=== PATIENT | female | born 1975 | race Caucasian/White ===

== ENCOUNTER → 2017-09-29 11:13 | Outpatient (CLI) | payer OTHER, SELFPAY ==
[2017-10-01 11:39] LABS: HPV Reflexed? NOT INDICATED
== END ==
PROVIDERS: Visit Provider Obstetrics & Gynecology
DX: Z12.4 Encounter for screening for malignant neoplasm of cervix (principal)
CPT/HCPCS: 88175; G0145

== ENCOUNTER → 2017-12-27 08:18 | Outpatient (CLI) | payer OTHER, SELFPAY ==
--- NOTE | 2017-12-27 08:21 | BI_ITS ---
MAMMOGRAPHY - BILATERAL SCREENING REASON FOR EXAM: Female, 42 years old. Routine annual screening examination. PERTINENT HISTORY: Non-contributory. TECHNIQUE: Digital bilateral breast samuel (3D mammographic acquisition) in the CC and MLO projections. 2-D mediolateral oblique (MLO) and craniocaudad (CC) views of both breasts were obtained. CAD: Full Field Digital Mammography with Computer Added Detection was performed. COMPARISON: Comparison is made with prior study dated December 02, 2016 and October 21, 2015. FINDINGS: Breast Composition: The breasts are heterogeneously dense, which may obscure small masses. There are no dominant masses or suspicious calcifications. No other significant abnormalities are identified. There has been no significant change since the prior study. BI/SCREENING MAMM (CAD), BILAT IMPRESSION: Stable bilateral screening mammogram. Yearly follow-up mammogram recommended. (A) ASSESSMENT CATEGORY: BIRADS Category 1: Negative. A letter regarding these results will be sent to the patient by the facility within 30 days. Approximately 10% of breast cancers are not detected by mammography. A normal mammogram should not delay biopsy of a clinically suspicious abnormality. [id number] Electronically Signed: Tyler Quigley MD at 9:11 EDT Tel [phone], Service support ,
== END ==
PROVIDERS: Visit Provider Obstetrics & Gynecology
DX: Z12.31 Encounter for screening mammogram for malignant neoplasm of breast (principal)
CPT/HCPCS: 77063; 77067

== ENCOUNTER → 2019-01-02 | Outpatient (CLI) | payer OTHER, SELFPAY ==
--- NOTE | 2019-01-02 08:02 | BI_ITS ---
MAMMOGRAPHY - BILATERAL SCREENING REASON FOR EXAM: Female, 43 years old. Routine annual screening examination. PERTINENT HISTORY: Non-contributory. TECHNIQUE: Digital bilateral breast radames (3D mammographic acquisition) in the CC and MLO projections. 2-D mediolateral oblique (MLO) and craniocaudad (CC) views of both breasts were obtained. CAD: Full Field Digital Mammography with Computer Added Detection was performed. COMPARISON: Comparison is made with prior study dated December 27, 2017 and December 02, 2016. FINDINGS: Breast Composition: The breasts are heterogeneously dense, which may obscure small masses. There is a 4 mm well-defined nodule in the deep slightly medial aspect of the left breast. Adjacent to this, there is a similar appearing benign nodule measuring 4 mm. Correlation with ultrasound is recommended. No other significant abnormalities are identified. BI/SCREEN MAMM (CAD) W/RADAMES BILAT IMPRESSION: There are 2 subcentimeter well-defined nodules in the deep slightly medial aspect of the left breast as described. Correlation with ultrasound is recommended. ASSESSMENT CATEGORY: BIRADS Category 0: Incomplete. Need additional imaging evaluation. A letter regarding these results will be sent to the patient by the facility within 30 days. Approximately 10% of breast cancers are not detected by mammography. A normal mammogram should not delay biopsy of a clinically suspicious abnormality. [id number] Electronically Signed: Tyler Quigley, at 9:27 EDT , Service support ,
== END | disposition home or self-care (01) ==
LOC: OPBI 07:59
PROVIDERS: Referring Provider Obstetrics & Gynecology; Visit Provider Obstetrics & Gynecology
DX: Z12.31 Encounter for screening mammogram for malignant neoplasm of breast (principal)
CPT/HCPCS: 77063; 77067

== ENCOUNTER → 2019-01-04 | Outpatient (CLI) | payer SELFPAY ==
--- NOTE | 2019-01-04 15:29 | US_ITS ---
STUDY: ULTRASOUND BREAST - LEFT REASON FOR EXAM: Female, 43 years old. Abnormal screening mammogram. TECHNIQUE: Axial and longitudinal images of the LEFT breast were performed with a high resolution ultrasound transducer. COMPARISON: Comparison is made with prior mammogram dated January 02, 2019. FINDINGS: LEFT Breast: 3 subcentimeters cysts are seen at the 12 and 11:00 position the breast at 2 to 4 cm from nipple. This corresponds to the mammographic abnormality. US/Breast Limited Unilateral IMPRESSION: The mammographic abnormality corresponds to a cluster of 3 subcentimeters cysts. Routine mammographic follow-up is recommended. ASSESSMENT CATEGORY: BIRADS Category 2: Benign. A letter regarding these results will be sent to the patient by the facility within 30 days. Electronically Signed: Tyler Quigley, at 7:58 EDT , Service support ,
== END | disposition home or self-care (01) ==
LOC: OPUS 15:28
PROVIDERS: Referring Provider Obstetrics & Gynecology; Visit Provider Obstetrics & Gynecology
DX: N60.02 Solitary cyst of left breast (principal)
CPT/HCPCS: 76642

== ENCOUNTER → 2019-12-07 13:32 | Outpatient (CLI) | payer OTHER, SELFPAY ==
[2019-12-12 04:55] LABS: HPV Reflexed? NOT INDICATED
== END ==
PROVIDERS: Visit Provider Obstetrics & Gynecology
DX: Z12.4 Encounter for screening for malignant neoplasm of cervix (principal)
CPT/HCPCS: 88175; G0145

== ENCOUNTER → 2020-01-08 10:59 | Outpatient (CLI) | payer OTHER, SELFPAY ==
--- NOTE | 2020-01-08 11:00 | BI_ITS ---
MAMMOGRAPHY - BILATERAL SCREENING 3-D TOMOSYNTHESIS REASON FOR EXAM: Female, 44 years old. Routine screening PERTINENT HISTORY: NO FM HX , CURRENT BCP USE SINCE AGE 16, LT MOLE MARKED, RT U/S 12-09-16=LYMPH NODE. TECHNIQUE: 2-D mammograms and 3-D Tomosynthesis of the breast (s) were performed. CAD was performed. COMPARISON: 01/02/2019 FINDINGS: The breast composition is heterogeneously dense that can obscure small breast masses. Scattered benign calcifications are seen. No dense spiculated masses or suspicious microcalcifications are identified. No architectural distortion is identified. There is no skin thickening or retraction. There has been no significant change since the prior study. BI/SCREEN MAMM (CAD) W/RADAMES BILAT IMPRESSION: No mammographic signs of malignancy. Routine yearly mammograms recommended. ASSESSMENT CATEGORY: BIRADS Category 2: Benign. A letter regarding these results will be sent to the patient by the facility within 30 days. FOLLOW UP RECOMMENDATION: Yearly follow up mammogram recommended. (A) Approximately 10% of breast cancers are not detected by mammography. A normal mammogram should not delay biopsy of a clinically suspicious abnormality. Electronically Signed: Eleuterio Camejo MD at 11:51 EDT , Service support ,
== END ==
PROVIDERS: Referring Provider Obstetrics & Gynecology; Visit Provider Obstetrics & Gynecology
DX: Z12.31 Encounter for screening mammogram for malignant neoplasm of breast (principal)
CPT/HCPCS: 77063; 77067

== ENCOUNTER → 2021-03-06 07:49 | Outpatient (CLI) | payer OTHER, SELFPAY ==
--- NOTE | 2021-03-06 07:50 | BI_ITS ---
MAMMOGRAPHY - BILATERAL SCREENING REASON FOR EXAM: Female, 45 years old. Routine annual screening examination. PERTINENT HISTORY: Non-contributory. TECHNIQUE: Digital bilateral breast radames (3D mammographic acquisition) in the CC and MLO projections. 2-D mediolateral oblique (MLO) and craniocaudad (CC) views of both breasts were obtained. CAD: Full Field Digital Mammography with Computer Added Detection was performed. COMPARISON: Comparison is made with prior study dated 01/08/2020 and 01/02/2019. FINDINGS: Breast Composition: The breasts are heterogeneously dense, which may obscure small masses. There are no dominant masses or suspicious calcifications. No other significant abnormalities are identified. There has been no significant change since the prior study. BI/SCRN MAMM (CAD)W/RADAMES BILAT IMPRESSION: Stable bilateral screening mammogram. Yearly follow-up mammogram recommended. (A) ASSESSMENT CATEGORY: BIRADS Category 1: Negative. A letter regarding these results will be sent to the patient by the facility within 30 days. Approximately 10% of breast cancers are not detected by mammography. A normal mammogram should not delay biopsy of a clinically suspicious abnormality. [id number] Electronically Signed: Tyler Quigley MD at 9:01 EDT , Service support ,
== END ==
PROVIDERS: Referring Provider Obstetrics & Gynecology; Visit Provider Obstetrics & Gynecology
DX: Z12.31 Encounter for screening mammogram for malignant neoplasm of breast (principal)
CPT/HCPCS: 77063; 77067

== ENCOUNTER → 2022-03-12 | Outpatient (CLI) | payer OTHER, SELFPAY ==
--- NOTE | 2022-03-12 10:48 | BI_ITS ---
MAMMOGRAPHY - BILATERAL SCREENING 3-D TOMOSYNTHESIS REASON FOR EXAM: Female, 46 years old. SCREENING PERTINENT HISTORY: No significant family history. TECHNIQUE: 2-D mammograms and 3-D Tomosynthesis of the breast (s) were performed. CAD was performed. COMPARISON: 03/06/2021 FINDINGS: The breast composition is Extermely dense tissue. Scattered benign calcifications are seen. No dense spiculated masses or suspicious microcalcifications are identified. No architectural distortion is identified. There is no skin thickening or retraction. There has been no significant change since the prior study. BI/SCRN MAMM (CAD)W/RADAMES BILAT IMPRESSION: No mammographic signs of malignancy. Routine yearly mammograms recommended. ASSESSMENT CATEGORY: BIRADS Category 1: Negative. A letter regarding these results will be sent to the patient by the facility within 30 days. FOLLOW UP RECOMMENDATION: Yearly follow up mammogram recommended. (A) Approximately 10% of breast cancers are not detected by mammography. A normal mammogram should not delay biopsy of a clinically suspicious abnormality. Electronically Signed: Parker Matos MD at 14:48 EDT ,
== END | disposition home or self-care (01) ==
LOC: OPBI 10:45
DX: Z01.419 Encounter for gynecological examination (general) (routine) without abnormal findings (principal); Z12.31 Encounter for screening mammogram for malignant neoplasm of breast
CPT/HCPCS: 77063; 77067

== ENCOUNTER → 2023-04-01 | Outpatient (CLI) | payer OTHER, SELFPAY ==
--- NOTE | 2023-04-01 09:30 | BI_ITS ---
MAMMOGRAPHY - BILATERAL SCREENING REASON FOR EXAM: Female, 47 years old. Routine annual screening examination. PERTINENT HISTORY: Non-contributory. TECHNIQUE: Digital bilateral breast radames (3D mammographic acquisition) in the CC and MLO projections. 2-D mediolateral oblique (MLO) and craniocaudad (CC) views of both breasts were obtained. CAD: Full Field Digital Mammography with Computer Added Detection was performed. COMPARISON: Comparison is made with prior examination dated March 12, 2022. FINDINGS: Breast Composition: The breasts are heterogeneously dense, which may obscure small masses. There are no dominant masses or suspicious calcifications. Stable small benign-appearing bilateral axillary lymph nodes. No other significant abnormalities are identified. There has been no significant change since the prior study. BI/SCRN MAMM (CAD)W/RADAMES BILAT IMPRESSION: Stable bilateral screening mammogram. Yearly follow-up mammogram recommended. (A) ASSESSMENT CATEGORY: BIRADS Category 2: Benign. A letter regarding these results will be sent to the patient by the facility within 30 days. Approximately 10% of breast cancers are not detected by mammography. A normal mammogram should not delay biopsy of a clinically suspicious abnormality. [id number] Electronically Signed: Tyler Quigley MD at 13:29 EDT ,
== END | disposition home or self-care (01) ==
PROVIDERS: Referring Provider Nurse Practitioner Women's Health; Visit Provider Nurse Practitioner Women's Health
DX: Z01.419 Encounter for gynecological examination (general) (routine) without abnormal findings (principal); Z12.31 Encounter for screening mammogram for malignant neoplasm of breast
CPT/HCPCS: 77063; 77067

== ENCOUNTER → 2023-04-18 | Outpatient (CLI) | payer OTHER, SELFPAY | END | disposition home or self-care (01) | LOC: LABSPEC 14:42 | PROVIDERS: Visit Provider Nurse Practitioner Family | DX: R35.0 Frequency of micturition (principal) | CPT/HCPCS: 87086; 87088 ==

== ENCOUNTER → 2023-04-20 | Outpatient (CLI) | payer OTHER, SELFPAY ==
[2023-04-20 10:41] LABS: Bacteria 0 SEEN /hpf (None Seen); Mucous, Urine 0 SEEN /hpf (<or=2+); Red Blood Cells-Urine 0 SEEN /hpf (0-5)
[2023-04-20 13:16] LABS: Color, Urine Yellow (Yellow); Glucose, Dipstick Normal (Normal); Ketone-Dipstick 5 mg/dl (Negative); Leukocyte Esterase-Dipstick 25 /ul (Negative); Nitrite-Dipstick Positive (Negative); Occult Blood-Urine 150 /ul (Negative); Protein-Dipstick 15 mg/dl (Negative); Specific Gravity, Urine 1.025 (1.002-1.030); Urine Bilirubin Dipstick 3 mg/dL (Negative); Urine Clarity Sl. Cloudy (Clear); Urine Urobilinogen 4 mg/dl (Normal)
[2023-04-20 13:21] LABS: Squamous Epithelial Cells - UA 0-5 SEEN /hpf (5-10); White Blood Cells 0-5 SEEN /hpf (0-5)
== END | disposition home or self-care (01) ==
LOC: LABSPEC 10:39
PROVIDERS: Visit Provider Physician Assistant
DX: R35.0 Frequency of micturition (principal)
CPT/HCPCS: 81001; 87086

== ENCOUNTER 2023-04-22 18:11 | Emergency (ER) | payer OTHER, SELFPAY ==
[2023-04-22 18:12] VITALS: BP 131/87; PULSE 91; RESP 14; TEMP 36.6; O2SAT 100; BMI 25.7
--- NOTE | 2023-04-22 19:00 | ED.VIS.FEGU ---
HPI HPI - Female History of Present Illness Chief Complaint: Complaint Narrative Narrative: 37-year-old presenting with urinary frequency. She had this last week and was concerned for UTI so she went to the urgent care where they told her initially she did not have a UTI but then was told that her culture was positive. She was started on Macrobid and then told that her culture was negative. She states that she went back to have a repeat urinalysis and initially it looked negative and the culture was negative but she was placed on Cipro. She was called and told that her culture was negative so she stopped Cipro. She still complaining of frequency. She does not have dysuria. She does state that she has some mild suprapubic pain which is present before she urinates but after she voids it goes away. She also has some left flank pain. History of kidney stones. [facility] Medical History Dysuria Urinary tract infection with hematuria Home Medications norethindrone-e.estradiol triphasic 0.5 mg/0.75 mg/1 mg-35 mcg tablet (Nylia (28)) tab PO 04/18/23 [History Last Taken Unknown] phenazopyridine 100 mg tablet (Pyridium) 100 mg PO TID PRN pain #7 tabs 04/18/23 [Rx Last Taken Unknown] ciprofloxacin HCl 500 mg tablet 500 mg PO BID #10 tabs 04/20/23 [Rx Last Taken Unknown] Allergy/AdvReac Type Severity Reaction Status Date / Time amoxicillin Allergy Intermediate Hives Verified 04/20/23 10:21 ciprofloxacin AdvReac Intermediate Tingling Verified 04/20/23 17:34 Social History adopted: No household members: spouse and children current occupational status: employed 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 pets and animals: Yes (1) pets and animals: dog(s) history of recent travel: No sexually active: Yes Smoking Status: Never smoker alcohol intake: current alcohol intake frequency: a few times a week Alcohol type: wine substance use type: does not use caffeine: Yes (1) Type: coffee frequency: daily seatbelt use: always do you feel safe at home: Yes ROS ROS ED Constitutional Constitutional ED: Denies chills, fever(s) or sweats Eyes Eyes: Denies blurry vision or change in vision ENT ENT ED: Denies ear pain or sore throat Cardiovascular Cardiovascular: Denies chest pain, palpitations or racing heartbeat Respiratory/Chest Respiratory/Chest: Denies cough, dyspnea or sputum Gastrointestinal Gastrointestinal: Reports abdominal pain; Denies constipation, diarrhea, nausea or vomiting Genitourinary Genitourinary ED: Reports urinary frequency; Denies dysuria or hematuria Musculoskeletal Musculoskeletal: Denies arthralgias, myalgias or neck pain Integumentary Denies abscess, Abrasions or rash Neurologic Neurologic: Denies headache(s), paresthesias or weakness Psychiatric Psychiatric: Denies anxiety, depression, suicidal ideation or suicidal thoughts Endocrine Endocrinology: Denies polydipsia or polyuria EXAM Physical Exam Const Vital Signs: 04/22/23 18:12 04/22/23 20:45 04/22/23 20:51 Temperature 98 F Temperature Source Temporal Pulse Rate 91 83 Respiratory Rate 14 18 18 Blood Pressure 131/87 H 129/89 H Blood Pressure Mean 101 102 Pulse Ox 100 98 98 Oxygen Delivery Method Room Air Room Air Positive well nourished General Appearance ED: NAD; Negative for pallor HEENT Reports TM's clear and moist mucous membranes Tympanic Membrane ED: Yes TM's clear Eyes PERRL and EOMs intact bilaterally Chest Wall inspection of chest normal Resp normal respiratory effort Cardio regular rate and regular rhythm GI normal to inspection, nondistended, normoactive bowel sounds, non-tender and non-distended Back/Spine no CVA tenderness Neuro oriented x3 Sensorium / Orientation: alert Motor Exam: strength 5/5 throughout Psych mental status grossly normal Skin no rashes or lesions noted General Skin Exam: Negative for jaundice or pallor MDM MDM MDM Narrative Medical decision making narrative: Patient presenting with continued urinary frequency. Differential includes UTI, pyelonephritis, kidney stone, ureteral stone, interstitial cystitis. CBC will be obtained to assess white blood cell count, normal, platelets. BMP to assess renal function, electrolytes. Patient declines analgesia and antiemetics. We will obtain a CT abdomen pelvis without contrast to rule out kidney stone. CBC and BMP were unremarkable. Urinalysis shows some occult blood but no evidence of infection. This was sent for culture. CT of the abdomen pelvis without contrast was obtained and shows no acute process. Discussed findings with patient and given that she is having ongoing urinary frequency I will have her follow-up with urology. She is amenable to this. She discharged stable condition. Impression: 1. Urinary frequency 2. Left flank pain Lab Data Labs: Laboratory Results - last 24 hr 04/22/23 04/22/23 19:05 19:10 WBC 8.1 RBC 5.06 Hgb 15.3 H Hct 47.9 H MCV 94.7 MCH 30.2 MCHC 31.9 L RDW Std Deviation 41.0 RDW Coeff of Wilder 11.9 Plt Count 312 MPV 10.6 Immature Gran % (Auto) 0.200 Neut % (Auto) 67.8 Lymph % (Auto) 24.6 Bledsoe % (Auto) 6.2 Eos % (Auto) 0.7 Baso % (Auto) 0.5 Absolute Neuts (auto) 5.5 Absolute Lymphs (auto) 2.00 Nucleated RBC % 0 Sodium 140 Potassium 3.7 Chloride 104 Carbon Dioxide 32.0 Anion Gap 4 L BUN 13 Creatinine 0.94 Estim Creat Clear Calc 62.52 Est GFR (MDRD) Af Amer 81 Est GFR (MDRD) Non-Af 67 BUN/Creatinine Ratio 13.9 Glucose 140 H Calcium 8.9 Urine Color Yellow Urine Clarity Clear Urine pH 5.0 Ur Specific Cody 1.015 Urine Protein Negative Urine Glucose (UA) Normal Urine Ketones Negative Urine Occult Blood 150 H Urine Nitrite Negative Urine Bilirubin Negative Urine Urobilinogen Normal Ur Leukocyte Esterase 100 H Urine RBC 0-5 SEEN Urine WBC 5-10 SEEN Ur Squamous Epith Cells 0-5 SEEN Urine Bacteria RARE Urine Mucus 0 SEEN Radiography Diagnostic Testing: Clinical Impression(s) from Imaging Studies Abdomen/Pelvis CT 04/22/23 19:25 IMPRESSION: Normal unenhanced CT of the abdomen and pelvis. No stones or hydronephrosis. Electronically Signed: Ibrahima Tello MD at 20:12 EDT , Discharge Plan Triage Chief Complaint: Complaint ED Provider: Jarad Torres Dx/Rx/DC Orders Clinical Impression: Urinary frequency Instructions: Overactive Bladder Syndrome (OAB) Prescriptions: No Action Nylia (28) 0.5/0.75/1 mg- 35 mcg tablet PO Patient Comments: TAKE 1 TABLET BY MOUTHTONCE DAILY phenazopyridine [Pyridium] 100 mg tablet 100 mg PO TID PRN (Reason: pain) Qty: 7 0RF ciprofloxacin HCl 500 mg tablet 500 mg PO BID Qty: 10 0RF Primary Care Provider: Care Physician,No Primary Referrals: Supriya Jaffe MD [Med Staff - Active Staff] - 3-5 Days Care Physician,No Primary [Primary Care Provider] - Disposition Disposition: Home, Self Care Discharge Date/Time: 04/22/23 20:59
[2023-04-22 19:15] LABS: Absolute Neutrophil Count 5.5 X10^3/uL (2.0-7.7); Basophil# 0.04 X10^3/uL; Basophil% 0.5 % (0-1); Eosinophil# 0.06 X10^3/uL; Eosinophils% 0.7 % (0-5); Hematocrit 47.9 % (37-47); Hemoglobin 15.3 g/dL (12.0-15.0); Lymphocyte % 24.6 % (19-41); Mean Corp Hgb Conc 31.9 g/dL (32-36); Mean Corpuscular Hgb 30.2 pg (27.0-32.0); Mean Corpuscular Volume 94.7 fL (81-99); Mean Platelet Vol. 10.6 fl (6.2-12.0); Monocyte% 6.2 % (0-10); NRBC Flagged by Analyzer 0 % (0-5); Neutrophil % 67.8 % (47-70); Platelet Count 312 K/mm3 (150-450); RBC Distribution Width CV 11.9 % (11.6-14.6); Red Blood Count 5.06 M/mm3 (4.2-5.4); White Blood Count 8.1 K/mm3 (4.4-11.0)
[2023-04-22 19:16] LABS: Mucous, Urine 0 SEEN /hpf (<or=2+)
[2023-04-22 19:24] LABS: Color, Urine Yellow (Yellow); Glucose, Dipstick Normal (Normal); Ketone-Dipstick Negative (Negative); Leukocyte Esterase-Dipstick 100 /ul (Negative); Nitrite-Dipstick Negative (Negative); Occult Blood-Urine 150 /ul (Negative); Protein-Dipstick Negative (Negative); Specific Gravity, Urine 1.015 (1.002-1.030); Urine Bilirubin Dipstick Negative (Negative); Urine Clarity Clear (Clear); Urine Urobilinogen Normal (Normal)
--- NOTE | 2023-04-22 19:25 | CT_ITS ---
STUDY: CT ABDOMEN AND PELVIS WITHOUT CONTRAST REASON FOR EXAM: Female, 47 years old. Kidney Stone RADIATION DOSAGE (If Supplied By Facility): CTDIvol = ( 8.06 ) mGy, DLP = ( 402.49 ) mGycm TECHNIQUE: Transaxial images were obtained from the dome of the diaphragm to the symphysis pubis without oral contrast, and without intravenous contrast. Sagittal and coronal images were reconstructed. Individualized dose optimization techniques were used for this CT. COMPARISON: None. FINDINGS: The visualized lung bases are unremarkable. The visualized portions of the heart are within normal limits. Normal liver. Normal gallbladder and extrahepatic biliary system. Normal spleen. Normal pancreas. Normal bilateral adrenal glands. Normal right kidney. Normal left kidney. Normal visualized stomach. Normal small intestine. Normal colon. There is moderate stool. The appendix is visualized and appears normal. Normal abdominal aorta. Normal inferior vena cava. Normal retroperitoneum. Normal urinary bladder. Normal visualized uterus. There is no free fluid in the abdomen or pelvis. Normal abdominal wall. Normal osseous structures. CT/Abdomen/Pelvis without Cont IMPRESSION: Normal unenhanced CT of the abdomen and pelvis. No stones or hydronephrosis. Electronically Signed: Ibrahima Tello MD at 20:12 EDT ,
[2023-04-22 19:33] LABS: Bacteria RARE /hpf (None Seen); Red Blood Cells-Urine 0-5 SEEN /hpf (0-5); Squamous Epithelial Cells - UA 0-5 SEEN /hpf (5-10); White Blood Cells 5-10 SEEN /hpf (0-5)
[2023-04-22 19:36] LABS: Anion Gap 4 (5-15); BUN 13 mg/dL (7-18); BUN/Creat Ratio 13.9 RATIO (10-20); Calcium,Total 8.9 mg/dL (8.5-10.1); Chloride 104 mmol/L (98-107); Creatinine, Serum 0.94 mg/dL (0.55-1.02); EST Glomerular Filtration Rate 67 mL/min (>60); Est Glom Filt Rate - Afr Amer 81 mL/min (>60); Estimated Creatinine Clearance 62.52 ml/min; Glucose 140 mg/dL (74-106); Potassium 3.7 mmol/L (3.5-5.1); Sodium Level 140 mmol/L (136-145)
[2023-04-22 20:45] VITALS: BP 129/89; PULSE 83; RESP 18; O2SAT 98
[2023-04-22 20:51] VITALS: RESP 18; O2SAT 98
== END 2023-04-22 20:59 | disposition home or self-care (01) ==
PROVIDERS: Emergency Provider Student in an Organized Health Care Education/Training Program; Visit Provider Student in an Organized Health Care Education/Training Program
DX: R10.9 Unspecified abdominal pain (principal); R35.0 Frequency of micturition
CPT/HCPCS: 74176; 80048; 81001; 85025; 87077; 87086; 87088; 87186; 99283; A4216

== ENCOUNTER 2023-05-21 09:18 | Outpatient (CLI) | payer OTHER, SELFPAY ==
[2023-05-21 09:21] LABS: Bacteria 0 SEEN /hpf (None Seen); Mucous, Urine 0 SEEN /hpf (<or=2+); Red Blood Cells-Urine 0 SEEN /hpf (0-5); Squamous Epithelial Cells - UA 0 SEEN /hpf (5-10); White Blood Cells 0 SEEN /hpf (0-5)
[2023-05-21 10:15] LABS: Absolute Lymphocyte Count 1.71 X10^3/uL (0.83-4.51); Absolute Neutrophil Count 5.8 X10^3/uL (2.0-7.7); Basophil# 0.04 X10^3/uL; Basophil% 0.5 % (0-1); Eosinophil# 0.04 X10^3/uL; Eosinophils% 0.5 % (0-5); Hematocrit 49.9 % (37-47); Hemoglobin 15.5 g/dL (12.0-15.0); Lymphocyte # 1.71 X10^3/ul (0.83-4.51); Lymphocyte % 21.6 % (19-41); Mean Corp Hgb Conc 31.1 g/dL (32-36); Mean Corpuscular Hgb 29.7 pg (27.0-32.0); Mean Corpuscular Volume 95.6 fL (81-99); Mean Platelet Vol. 10.9 fl (6.2-12.0); Monocyte# 0.32 X10^3/uL; NRBC Flagged by Analyzer 0 % (0-5); Neutrophil % 73.1 % (47-70); Platelet Count 285 K/mm3 (150-450); RBC Distribution Width CV 11.9 % (11.6-14.6); RBC Distribution Width SD 42.2 fl (35.1-43.9); Red Blood Count 5.22 M/mm3 (4.2-5.4); White Blood Count 7.9 K/mm3 (4.4-11.0)
[2023-05-21 10:44] LABS: Hemoglobin A1c 5.3 % (3.8-5.6)
[2023-05-21 11:04] LABS: T4 Free Direct 0.91 ng/dL (0.76-1.46)
[2023-05-21 12:13] LABS: Color, Urine Yellow (Yellow); Glucose, Dipstick Normal (Normal); Ketone-Dipstick 5 mg/dl (Negative); Leukocyte Esterase-Dipstick 100 /ul (Negative); Nitrite-Dipstick Negative (Negative); Occult Blood-Urine 150 /ul (Negative); Protein-Dipstick Negative (Negative); Specific Gravity, Urine 1.015 (1.002-1.030); Urine Bilirubin Dipstick Negative (Negative); Urine Clarity Clear (Clear); Urine Urobilinogen Normal (Normal)
[2023-05-31 05:06] LABS: Anti-Thyroglobulin AB 333.6 IU/mL (0.0-0.9); Thyroglobulin RIA 5.8 ng/mL (.); Thyroid Peroxidase AB 220 IU/mL (0-34); Thyroid Stim Immunoglob <0.10 IU/L (0.00-0.55)
== END 2023-05-21 23:59 | disposition home or self-care (01) ==
LOC: MFPLAB 09:19
PROVIDERS: PCP Family Medicine; Visit Provider Family Medicine
DX: R63.1 Polydipsia (principal); E01.0 Iodine-deficiency related diffuse (endemic) goiter
CPT/HCPCS: 36415; 81001; 83036; 84432; 84439; 84443; 84445; 85025; 86376; 86800

== ENCOUNTER → 2023-06-01 | Outpatient (CLI) | payer OTHER, SELFPAY ==
--- NOTE | 2023-06-01 13:07 | US_ITS ---
EXAM: US SOFT TISSUES HEAD AND NECK, THYROID CLINICAL INDICATION: THYROMEGALY TECHNIQUE: Martinez scale and color doppler imaging was performed of the thyroid gland. COMPARISON: No relevant prior studies available. FINDINGS: LEFT THYROID LOBE: Left thyroid lobe measures 4.8 x 1.8 x 1.8 cm with diffusely heterogeneous echotexture. Dominant 1.8 cm nodule noted appearing solid and cystic in nature, wider than tall, lobulated in contour and without microcalcification. TI-RADS points: 4. TI-RADS category: TR4. This nodule is moderately suspicious. Recommend FNA evaluation. Additional 8 mm left thyroid nodule appears probably solid in nature, isoechoic, wider than tall, well-defined and without microcalcification. TI-RADS points: 3. TI-RADS category: TR3. This nodule is mildly suspicious but no FNA or follow-up is necessary given the small size of this nodule. RIGHT THYROID LOBE: Right thyroid lobe measures 5.1 x 2.0 x 1.9 cm. No abnormal heterogeneous echotexture noted. 5 mm dominant thyroid nodule is wider than tall, well defined, isoechoic and without microcalcification. TI-RADS points: 3. TI-RADS category: TR3. This nodule is mildly suspicious but no FNA or follow-up is necessary given the small size of this nodule. ISTHMUS: Isthmus measures 1 mm in AP dimension. No thyroid nodules are present. US/Thyroid IMPRESSION: Multinodular thyroid gland. RECOMMENDATIONS: FNA of the dominant left thyroid nodule. Electronically Signed: Edy De Los Santos MD at 8:54 EST ,
== END | disposition home or self-care (01) ==
PROVIDERS: PCP Family Medicine; Referring Provider Family Medicine; Visit Provider Family Medicine
DX: E01.0 Iodine-deficiency related diffuse (endemic) goiter (principal)
CPT/HCPCS: 76536

== ENCOUNTER 2023-06-17 12:22 | Outpatient (RCR) | payer OTHER, SELFPAY ==
--- NOTE | 2023-06-17 15:25 | HP.PTEVAL ---
Patient's Visit Information Visit Information Visit Information: SALOMON TEJEDA is a 47 year old F referred to Physical Therapy by JOE ANTONY with a diagnosis of URINARY URGENCY, FREQUENCY AND PELVIC PAIN. Date of Evaluation: 06/17/23 Physical Therapist: Celeste Lancaster, PT, Cert MDT Visit Plan Frequency: 1x/Week Duration: 2-4 Months Plan: PF THERAPY FOR STRENGTHENING, LENGTHENING/RELAXATION AND ENDURANCE TRAINING. URINARY URGE AND FREQUENCY EDUCATION. HEALTHY BLADDER HABIT EDUCATION. TRAINING IN COORDINATION OF PELVIC FLOOR MUSCULATURE WITH HIP AND CORE (TRANSVERSE ABDOMINUS) MUSCULATURE. CORE STRENGTHENING. AME LE ROM, STRETCHING AND STRENGTHENING. TRAINING IN ABDOMINAL CAVITY PRESSURE MGMT WITH ADL'S. Subjective Subjective: Work/Leisure: [employer] WORK FOR [employer] - WORKING ABOUT 30 HRS A WK. Disability: NO Present symptoms: URINARY URGENCY AND FREQUENCY. PATIENT REPORTS SHE HAD SOME ABDOMINAL PAIN EARLY ON BUT THAT HAS GONE AWAY. Present since: SINCE APR 16 2023. Pain Scale: N/A Is it getting better, worse or staying the same: THE LAST 5 NIGHTS IT HAS BEEN BETTER - ABLE TO GO 2.5 HRS BEFORE NEEDING TO URINATE VS 1.25 PRIOR Commenced as a result of: UTI Symptoms at onset: INCREASED FREQUENCY OF URINATION AT NIGHT - EVERY TWO HOURS Worse: DRINKING A LOT OF WATER ALL AT ONCE Better: PATIENT DOESN'T KNOW Disturbed sleep: YES - DUE TO FREQUENT URINATION Previous history/Previous treatment: NO SIGNIFICANT PRIOR HISTORY. Treatment this episode: DX'D WITH UTI BY DR. CARL APR 26 2023 AND TREATED WITH ANTIBIOTIC. LAST CULTURE 06/08/23 WAS NEGATIVE. GEMTESA - PRESCRIBED BY DR. CARL 05/11/23 AND Amitriptyline - DR. WALTERS PRESCRIBED May. FUNCTIONAL MEDICINE CONSULT 06/03/23 WITH REFERRAL TO PT. - RECOMMENDED SUPPLEMENTS THAT PATIENT IS TAKING AND DIET CHANGES. Coughing/sneezing/straining: INTERMITTENTLY POSITIVE FOR UI Gait: NORMAL How long can you delay the need to urinate: LONG NEEDED - HAS NOT EVER LEAKED BECAUSE COULD NOT GET THERE IN TIME BUT USUALLY HAS ACCESS WITHIN 10 TO 15 MINUTES. Prolapse (Falling out feeling): NO Frequency of Urination: ABOUT EVERY 2 HOURS Ability to stop urine flow: YES Ability to initiate urine stream: YES Dyspareunia: SOMETIMES SLIGHT PAIN Bowel Incontinence: NO Accidents: NO Unexplained weight loss: NO Imaging: CYSTOSCOPY BY DR. CARL THAT WAS NORMAL PER PATIENT REPORT. PMH/Recent major surgery: THYROID BIOPSY PENDING. H/O L LB/HIP PAIN - CHRONIC. H/O LOW BACK PAIN - OLD WORK INJURY. H/O CHRONIC NECK PAIN AND STIFFNESS. HISTORY OF CHIROPRACTIC TREATMENTS FOR NECK AND BACK PROBLEMS. Objective Objective: Sitting/Standing Posture: FH. RSH'S. NORMAL LORDOSIS. NO RELEVANT LATERAL SHIFT. Active Correction of posture: NE Other Observations: INDEP GAIT AND TRANSFERS WITH NO GROSS DEVIATIONS NOTED. Sensory deficit: AME LE LIGHT TOUCH SENSATION GROSSLY INTACT AND SYMMETRICAL ROM deficit: MODERATE AME LE HS, HIP ER, HIP ADDUCTOR AND CALF TIGHTNESS Motor deficit: AME HIPS 4/5, KNEES 5/5, ANKLES 5/5. PELVIC FLOOR STRENGTH WITH MANUAL INTERNAL VAGINAL TESTING GRADED 3/5 X 5 SEC X 4 REPS. Reflexes: 2/3 AME LE'S. Dural Signs: NEGATIVE AME LE SX'S. Lumbar mvmt loss: flex - NIL ext - MIN R SG - NIL L SG - MIN PATIENT C/O MILD TO MOD L LOW BACK PAIN WITH L SIDE BEND TESTING. PATIENT DENIES AME LE PAIN, NUMBNESS OR TINGLING. Core strength: POOR Palpation: NO ACUTE LUMBAR TENDERNESS. NO ACUTE PELVIC FLOOR TENDERNESS OR TRIGGER POINTS WITH MANUAL VAGINAL INTERNAL TESTING. FUNCTIONAL SCREEN: Incontinence Impact Questionnaire Score: 9 Urogenital Distress Inventory Score: 4 OTHER: PATIENT TOLERATED ALL TESTING WELL. Goals Goal 1:: NORMALIZE VOIDING FREQUENCEY TO EVERY 3-4 HOURS. Goal Time Frame: 6-8 Weeks Goal 2:: PATIENT WILL DEMONSTRATE/COMMUNICATE 10 CONSISTENT AND CONSECUTIVE 10 SECOND PELVIC FLOOR MUSCLE CONTRACTIONS TO DEMONSTRATE IMPROVED PELVIC FLOOR ENDURANCE. Goal Time Frame: 8-12 Weeks Goal 3:: IMPROVE CORE AND LE STRENGTH BY AT LEAST 1/2 MUSCLE GRADE Goal Time Frame: 8-12 Weeks Goal 4:: IMPROVE AME LE FLEXIBILITY FROM MODERATE TO MILD Goal Time Frame: 8-12 Weeks Goal 5:: DEVELOP HEALTHY FLUID INTAKE HABITS WITH FLUID INTAKE OF ? BODY WEIGHT IN OUNCES PER DAY AND 2/3 BEING WATER. Goal Time Frame: 2-4 Weeks Goal 6:: PATIENT WILL BE INDEP WITH A HEP/HOME INSTRUCTIONS FOR CONTINUED IMPROVEMENT ONCE FORMAL PHYSICAL THERAPY CONCLUDES. Goal Time Frame: 8-12 Weeks Rehabilitation Potential Physical Therapy Diagnosis: URINARY URGENCY AND FREQUENCY - CONTRIBUTING FACTORS INCLUDE DECREASED CORE/POSTURAL STABILITY CONTROL, HIP STIFFNESS AND PELVIC FLOOR WEAKNESS. Rehabilitation Potential: Good Anticipated Interventions Patient/Client Instruction: Educate patient on: Condition, Plan of Care and Risk Factors For the Purpose of:: To improve self management Therapeutic Exercise to Include: Strength training, Endurance training, Coordination, Body mechanics, Flexibilty training, Neuromotor development and Relaxation training For the Purpose of:: To increase ROM, To improve muscle performance and motor function and To improve ability of physical actions for home/community/work/leisure Text: Thank you for the opportunity to evaluate your patient. For Medicare and Medicare HMO plans, please review the plan of care and approve it. It will need to be FAXED BACK to us at [phone] for Medicare purposes. For Medicare only, by signing this I certify the plan of care. Please let me know if there are questions or concerns regarding this plan of care. Physician Signature: Date:
--- NOTE | 2023-07-01 14:19 | HP.PTDCNRP_ITS ---
Patient Information Patient Information: SALOMON TEJEDA was seen in my office for initial evaluation on 06/17/23. The following Plan of Care was established for this patient: POC Established Initial Frequency: 1x/Week Initial Duration: 2-4 Months Anticipated Interventions Patient/Client Instruction: Educate patient on: Condition, Plan of Care and Risk Factors For the Purpose of:: To improve self management Therapeutic Exercise to Include: Strength training, Endurance training, Coordination, Body mechanics, Flexibilty training, Neuromotor development and Relaxation training For the Purpose of:: To increase ROM, To improve muscle performance and motor function and To improve ability of physical actions for home/comm unity/work/leisure Last Seen Last Seen: This patient was last seen in our office . Pertinent comments regarding their Physical therapy will appear below: I received a note stating patient cancelled all appointments due to high insurance deductible/co-pay after initial evaluation. At this point I will be discontinuing this patient from physical therapy. I would be happy to see this patient again in the future if found appropriate by the physician. Thank you! Celeste Lancaster, PT, Cert MDT
== END 2023-06-17 19:00 | disposition home or self-care (01) ==
LOC: PT 12:22
PROVIDERS: PCP Family Medicine
DX: R39.15 Urgency of urination (principal)
CPT/HCPCS: 97162

== ENCOUNTER → 2023-10-07 | Outpatient (CLI) | payer OTHER, SELFPAY ==
[2023-10-07 10:20] LABS: Absolute Lymphocyte Count 1.84 X10^3/uL (0.83-4.51); Absolute Neutrophil Count 3.5 X10^3/uL (2.0-7.7); Basophil# 0.03 X10^3/uL; Basophil% 0.5 % (0-1); Eosinophil# 0.06 X10^3/uL; Hematocrit 47.8 % (37-47); Hemoglobin 15.1 g/dL (12.0-15.0); Lymphocyte # 1.84 X10^3/ul (0.83-4.51); Lymphocyte % 31.8 % (19-41); Mean Corp Hgb Conc 31.6 g/dL (32-36); Mean Corpuscular Hgb 30.1 pg (27.0-32.0); Mean Corpuscular Volume 95.2 fL (81-99); Mean Platelet Vol. 11.6 fl (6.2-12.0); Monocyte# 0.34 X10^3/uL; Monocyte% 5.9 % (0-10); NRBC Flagged by Analyzer 0 % (0-5); Neutrophil % 60.6 % (47-70); Platelet Count 258 K/mm3 (150-450); RBC Distribution Width CV 11.9 % (11.6-14.6); RBC Distribution Width SD 41.7 fl (35.1-43.9); Red Blood Count 5.02 M/mm3 (4.2-5.4); White Blood Count 5.8 K/mm3 (4.4-11.0)
[2023-10-07 11:09] LABS: ALB/GLOB Ratio 1.1 RATIO (0.9-2.4); AST(SGOT) 14 U/L (15-37); Alanine Aminotransfer ALT/SGPT 20 U/L (13-56); Albumin, Serum 3.7 g/dL (3.2-5.0); Alkaline Phosphatase 54 U/L (45-117); Anion Gap 3 (5-15); BUN 13 mg/dL (7-18); BUN/Creat Ratio 15.4 RATIO (10-20); Calcium,Total 8.8 mg/dL (8.5-10.1); Chloride 108 mmol/L (98-107); Creatinine, Serum 0.84 mg/dL (0.55-1.02); EST Glomerular Filtration Rate 76 mL/min (>60); Est Glom Filt Rate - Afr Amer 92 mL/min (>60); Globulin 3.5 g/dL (2.2-4.2); Glucose 87 mg/dL (74-106); Potassium 4.1 mmol/L (3.5-5.1); Protein, Total 7.2 g/dL (6.4-8.2); Sodium Level 138 mmol/L (136-145)
[2023-10-08 11:54] LABS: Cholesterol 198 mg/dL (200); High Density Lipoprotein 44 mg/dL; T4 Free Direct 0.91 ng/dL (0.76-1.46); Thyroid Stim Hormone (TSH) 1.95 uIU/mL (0.358-3.74); Triglycerides 101 mg/dL; Very Low Density Lipoprotein 20 mg/dL (5-40)
== END | disposition home or self-care (01) ==
LOC: MFPLAB 09:13
PROVIDERS: PCP Family Medicine; Visit Provider Family Medicine
DX: E06.3 Autoimmune thyroiditis (principal)
CPT/HCPCS: 36415; 80053; 80061; 84439; 84443; 85025

== ENCOUNTER → 2024-03-01 | Outpatient (CLI) | payer OTHER, SELFPAY ==
[2024-03-01 14:47] LABS: Estradiol < 11.0 pg/mL
[2024-03-03 11:10] LABS: PROGESTERONE <0.1 ng/mL (.)
== END | disposition home or self-care (01) ==
LOC: LABSPEC 14:00
PROVIDERS: PCP Family Medicine; Referring Provider Nurse Practitioner Family; Visit Provider Nurse Practitioner Family
DX: N95.9 Unspecified menopausal and perimenopausal disorder (principal)
CPT/HCPCS: 82670; 84144; 84403

== ENCOUNTER → 2024-04-04 | Outpatient (CLI) | payer OTHER, SELFPAY ==
--- NOTE | 2024-04-04 14:41 | BI_ITS ---
MAMMOGRAPHY - BILATERAL SCREENING 3-D TOMOSYNTHESIS REASON FOR EXAM: Female, 48 years old. SCREENING PERTINENT HISTORY: No significant family history. TECHNIQUE: 2-D mammograms and 3-D Tomosynthesis of the breast (s) were performed. CAD was performed. COMPARISON: 04/01/2023 FINDINGS: The breast composition is Extermely dense tissue. Scattered benign calcifications are seen. No dense spiculated masses or suspicious microcalcifications are identified. No architectural distortion is identified. There is no skin thickening or retraction. There has been no significant change since the prior study. BI/SCRN MAMM (CAD)W/RADAMES BILAT IMPRESSION: No mammographic signs of malignancy. Routine yearly mammograms recommended. ASSESSMENT CATEGORY: BIRADS Category 1: Negative. A letter regarding these results will be sent to the patient by the facility within 30 days. FOLLOW UP RECOMMENDATION: Yearly follow up mammogram recommended. (A) Approximately 10% of breast cancers are not detected by mammography. A normal mammogram should not delay biopsy of a clinically suspicious abnormality. Electronically Signed: Parker Matos MD at 8:31 EDT ,
== END | disposition home or self-care (01) ==
LOC: OPBI 14:40
PROVIDERS: PCP Family Medicine; Referring Provider Nurse Practitioner Women's Health; Visit Provider Nurse Practitioner Women's Health
DX: Z12.31 Encounter for screening mammogram for malignant neoplasm of breast (principal)
CPT/HCPCS: 77063; 77067

== ENCOUNTER → 2024-06-05 | Outpatient (CLI) | payer OTHER, SELFPAY ==
--- NOTE | 2024-06-05 16:26 | US_ITS ---
STUDY: THYROID ULTRASOUND REASON FOR EXAM: Female, 48 years old. History of thyroid nodules. TECHNIQUE: Ultrasound evaluation of the thyroid was performed with real-time and static addison-scale imaging. COMPARISON: Comparison is made with prior study dated June 01, 2023. FINDINGS: RIGHT LOBE: The right lobe of the thyroid gland is enlarged and measures 5.3 cm x 1.2 cm x 2.1 cm. There is a heterogeneous echotexture. There is a 7 mm x 6 mm x 3 mm hypoechoic solid nodule with a increased vascularity in the anterior aspect of the right lobe. This is unchanged. LEFT LOBE: The left lobe of the thyroid gland is enlarged and measures 5.2 cm x 1.6 x 1.8 cm. There is a heterogeneous echotexture. There is a 1.4 cm x 1 cm x 0.6 on the complex solid and cystic nodule in the superior pole. This has decreased slightly in size. There is also evidence of a solid hypoechoic nodule in the superior pole measuring 7 mm x 5 mm x 5 mm. A similar-appearing hypoechoic solid nodule in the inferior pole measuring 8 mm x 8 mm x 7 mm is seen. This is unchanged. ISTHMUS: The isthmus measures 1.8 mm. The regional lymph nodes are normal. US/Thyroid IMPRESSION: Heterogeneous appearance of both lobes of thyroid gland with stable nodular densities as described. Electronically Signed: Tyler Quigley MD at 12:47 EST ,
== END | disposition home or self-care (01) ==
PROVIDERS: PCP Nurse Practitioner Family; Referring Provider Nurse Practitioner Family; Visit Provider Nurse Practitioner Family
DX: E04.1 Nontoxic single thyroid nodule (principal)
CPT/HCPCS: 76536

== ENCOUNTER → 2024-10-09 | Outpatient (CLI) | payer OTHER, SELFPAY ==
[2024-10-09 09:53] VITALS: BP 120/74; PULSE 100; RESP 16; TEMP 36.4; O2SAT 100; BMI 24.3
== END | disposition home or self-care (01) ==
LOC: RAD 09:37
PROVIDERS: PCP Nurse Practitioner Family; Referring Provider Nurse Practitioner Family; Visit Provider Nurse Practitioner Family
DX: N39.0 Urinary tract infection, site not specified (principal); B96.89 Other specified bacterial agents as the cause of diseases classified elsewhere

== ENCOUNTER → 2025-02-06 | Outpatient (CLI) | payer OTHER, SELFPAY ==
[2025-02-08 08:09] LABS: PROGESTERONE 2.2 ng/mL (.)
== END | disposition home or self-care (01) ==
LOC: LAB 12:11
PROVIDERS: PCP Nurse Practitioner Family; Referring Provider Nurse Practitioner Family; Visit Provider Nurse Practitioner Family
DX: E28.9 Ovarian dysfunction, unspecified (principal)
CPT/HCPCS: 36415; 82670; 84144; 84402; 84403

== ENCOUNTER → 2025-03-08 | Outpatient (CLI) | payer OTHER, SELFPAY | END | disposition home or self-care (01) | PROVIDERS: PCP Nurse Practitioner Family; Referring Provider Nurse Practitioner Family; Visit Provider Nurse Practitioner Family | DX: E04.1 Nontoxic single thyroid nodule (principal) | CPT/HCPCS: 36415; 86376 ==

== ENCOUNTER → 2025-05-09 | Outpatient (CLI) | payer OTHER, SELFPAY ==
--- NOTE | 2025-05-09 15:59 | BI_ITS ---
EXAM: SCRN MAMM (CAD)W/RADAMES BILAT DATE: 05/09/2025 CLINICAL HISTORY: F, Age 49 y/o , SCREENING No family history. TECHNIQUE: Procedure Code: [id number] Modality: MG Procedure: SCRN MAMM (CAD)W/RADAMES BILAT COMPARISON: Prior exam(s) dated April 05, 2024.. FINDINGS: TISSUE DENSITY: The breasts are extremely dense, which lowers the sensitivity of mammography. Bilateral Breast Mammographic Findings: No significant masses, calcifications or other abnormalities are identified. No suspicious masses, areas of developing architectural distortion, or suspicious calcifications. There has been no significant interval change. BI/SCRN MAMM (CAD)W/RADAMES BILAT IMPRESSION: Stable bilateral screening mammogram. OVERALL FINAL ASSESSMENT BI-RADS 1: NEGATIVE. RECOMMENDATION: Routine annual follow-up in 1 Year Additional Recommendation none A letter with findings and recommendations will be mailed to the patient. Reading Location: [facility]
== END | disposition home or self-care (01) ==
LOC: OPBI 15:58
PROVIDERS: PCP Nurse Practitioner Family; Referring Provider Nurse Practitioner Women's Health; Visit Provider Nurse Practitioner Women's Health
DX: Z12.31 Encounter for screening mammogram for malignant neoplasm of breast (principal)
CPT/HCPCS: 77063; 77067

== ENCOUNTER → 2025-05-11 | Outpatient (CLI) | payer OTHER, SELFPAY ==
--- OUTSIDE RECORDS SUMMARY | 2025-05-11 09:15 | XMS RPT_ITS | CCD ---
Author Organization [facility] ENGINEERING WRITER [facility] Care Team Providers Care Clothing Cutter Name Role Phone PRIYA ROSS Attending Unavail able Care Physician, No Primary Primary Care Provider Unavailable Care Physician, No Primary Referring Provider Un available Roof ADVERTISING SALES REPRESENTATIVE, ADVERTISING SALES REPRESENTATIVE-C Avril Welch Attending Provider SULAIMAN Lees Attending Provider Care Physician, No Primary Primary Care Provider Unavailable Care Physician, No Primary Referring Provider Un available Roof ADVERTISING SALES REPRESENTATIVE, ADVERTISING SALES REPRESENTATIVE-C Avril Welch Attending Provider SULAIMAN Lees Attending Provider RAVEN TAMEZ Attending Unavailable AVRIL SANTOS Primary Care Unavailable RAVEN TAMEZ Attending Unavailable AVRIL SANTOS Primary Care Unavailable RAVEN TAMEZ Attending Unavailable AVRIL SANTOS Primary Care Unavailable Orpérez PYROMETER MECHANIC-Alex FRANKLIN Primary Care Provider ALEX HENRIQUEZ Referring Unavailable ALEX HENRIQUEZ Primary Care Unavailable Pieter ADVERTISING SALES REPRESENTATIVE-C, Randee Charles Primary Care Provider Un available Alannah PORTILLO, Dr. Epps Attending Provider Pieter ADVERTISING SALES REPRESENTATIVE-C, Randee Charles Attending Provider Unava ilable Pieter ADVERTISING SALES REPRESENTATIVE-C, Randee Charles Referring Provider Unava ilable Pieter ADVERTISING SALES REPRESENTATIVE-C, Randee Charles Primary Care Physician Dr. Supriya Pickering MD Attending Physician Pieter ADVERTISING SALES REPRESENTATIVE-C, Randee Charles Attending Physician Unav ailable Pieter ADVERTISING SALES REPRESENTATIVE, Randee Charles Attending Unavailabl e Pieter ADVERTISING SALES REPRESENTATIVE, Randee Charles Referring Unavailabl e Pieter ADVERTISING SALES REPRESENTATIVE, Randee Charles Primary Care UnavailPriya Junior Attending Unavailable Priya Blandon Referring Unavailable Pieter ADVERTISING SALES REPRESENTATIVE, Randee Charles Primary Care Unavailabl e Pieter ADVERTISING SALES REPRESENTATIVE, Randee Charles Attending Unavailabl e Pieter ADVERTISING SALES REPRESENTATIVE, Randee Charles Referring Unavailabl e Pieter ADVERTISING SALES REPRESENTATIVE, Randee Charles Primary Care Unavailabl e Pieter ADVERTISING SALES REPRESENTATIVE, Randee Charles Attending Unavailabl e Pieter ADVERTISING SALES REPRESENTATIVE, Randee Charles Referring Unavailabl e Pieter ADVERTISING SALES REPRESENTATIVE, Randee K Primary Care Unavailabl e Pieter ADVERTISING SALES REPRESENTATIVE, Randee Charles Attending Unavailabl e Pieter ADVERTISING SALES REPRESENTATIVE, Randee Charles Referring Unavailabl e Pieter ADVERTISING SALES REPRESENTATIVE, Randee Charles Primary Care Unavailabl e Allergies Allergy Classification Reported Allergen(s) Allergy Type Date of Onset Reaction(s) Facility (10 sources) Amoxicillin; Translations: [amoxicillin] Drug Allergy 12-28-19 12 [facility] (9 sources) Ciprofloxacin; Translations: [CIPROFLOXACIN] Drug Allergy 04-20-20 23 [place] [facility] Comment on above: Reported tingling in hands (1 source) Penicillins; Translations: [PENICILLINS] Propensity to adverse reactions to drug (disorder) 12-18-19 13 [facility] Repository (1 source) Seasonal allergy; Translations: [SEASONAL ALLERGIES] Propensity to adverse reactions (disorder) 12-28-19 12 [facility] Repository (1 source) ALLERGIES NOT ON FILE; Translations: [ALLERGIES NOT ON FILE] Propensity to adverse reactions (disorder) [email or web address] 2 Repository (2 sources) Sulfamethoxazole Drug Allergy 10-10-19 25 [facility] (2 sources) Trimethoprim Drug Allergy 10-10-19 25 [facility] (1 source) Amoxicillin Drug Allergy 10-10-19 25 [facility] Repository (1 source) Ciprofloxacin Drug Allergy 10-10-19 25 [facility] Repository (1 source) Sulfamethoxazole Drug Allergy 10-10-19 25 [facility] Repository (1 source) Trimethoprim Drug Allergy 10-10-19 25 [facility] Repository Medications Current Medications Medication Drug Class(es) Dates Sig (Normalized) Sig (Original) 84 hr estradiol 0.72762 mg/hr transdermal system (2 sources) Estrogen Start: 10-09-2024 Nortrel 0.5/35 (1 source) Start: 02-25-2022 Nortrel 0.5/35 Oral, qDay, 0 Refill(s) Start Date: 02/25/22 Status: Ordered Vibegron (2 sources) Start: 10-09-2024 take 1 tablet by mouth once daily Start: 10-09-2024 take 1 tablet by jose th once daily Vibegron (Gemtesa) 75 mg tablet Active 75 mg PO DAILY October 09, 2024 12:00am Completed/Discontinued Medications Medication Drug Class(es) Dates Sig (Normalized) Sig (Original) ciprofloxacin 500 mg oral tablet (8 sources) Quinolone Antimicrobial Start: 04-20-2023 End: 10-09-2024 take 1 tablet by mouth twice daily Ciprofloxacin Hcl 500 mg tablet Discontinued 500 mg PO TWICE A DAY 10 April 20, 2023 12:00am October 09, 2024 9:52am Norethin-E.Estradio l Triphasic (9 sources) Estrogen Start: 04-18-2023 End: 10-09-2024 Norethin-E.Estradi ol Triphasic (Nylia ()) 0.5/0.75/1 mg- 35 mcg tablet Discontinued {tbl} PO April 18, 2023 12:00am October 09, 2024 9:51am Start: 04-18-2023 Norethin-E.Est radiol Triphasic (Nylia ()) 0.5/0.75/1 mg- 35 mcg tablet Active TABLET PO April 17, 2023 11:00pm Start: 04-18-2023 Norethin-E.Est radiol Triphasic (Nylia ()) 0.5/0.75/1 mg- 35 mcg tablet Active TABLET PO April 18, 2023 12:00am Start: 02-25-2022 take 1 tablet by jose th once daily Nortrel 0.5/35 oral tablet Dose = 1 tab(s), Oral, qDay, # 84 tab(s), 4 Refill(s), Pharmacy: [facility]/pharmacy #[id number], Well woman exam Contraception management, 162.6, cm, 02/25/22 13:29:00 EDT, Height Start Date: 02/25/22 Status: Ordered nitrofurantoin, macrocrystals 25 mg / nitrofurantoin, monohydrate 75 mg oral capsule (8 sources) Nitrofuran Antibacterial Start: 04-18-2023 End: 04-20-2023 take 1 capsule by mouth every twelve hours at mealtime Nitrofurantoin Monohyd/M-Cryst (Macrobid) 100 mg capsule Discontinued 100 mg PO Q12H 14 7 0 April 18, 2023 12:00am April 24, 2023 12:00am April 20, 2023 10:21am must administer with a meal/food phenazopyridine hydrochloride 100 mg oral tablet (8 sources) Start: 04-18-2023 End: 10-09-2024 take 1 tablet by mouth three times daily as needed for pain Phenazopyridine (Pyridium) 100 mg tablet Discontinued 100 mg PO THREE TIMES A DAY as needed for pain 7 0 April 18, 2023 12:00am October 09, 2024 9:51am Problems Active Problems Problem Classification Problem Date Documented Da te Episodic/Chronic Disorders of lipid metabolism (4 sources) Hyperlipidemia; Translations: [Hyperlipidemia, unspecified] Onset: 09-30-2023 09-30-2023 Chronic Genitourinary symptoms and ill-defined conditions (20 sources) Increased frequency of urination; Translations: [Frequency of micturition] 04-18-2023 Episodic Other endocrine disorders (1 source) Ovarian dysfunction, unspecified; Translations: [Ovarian dysfunction, unspecified] Onset: 02-12-2025 Chronic Other screening for suspected conditions (not mental disorders or infectious disease) (1 source) Abnormal findings on diagnostic imaging of other specified body structures; Translations: [Abnormal ultrasound of thyroid gland] Onset: 07-13-2023 Chronic Other screening for suspected conditions (not mental disorders or infectious disease) (3 sources) Encounter for screening for malignant neoplasm of cervix; Translations: [Encounter for screening mammogram for malignant neoplasm of breast] Onset: 02-25-2022 Episodic Thyroid disorders (2 sources) Autoimmune thyroiditis; 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] Onset: 07-23-2023 Chronic Past or Other Problems Problem Classification Problem Date Documented Da te Episodic/Chronic Urinary tract infections (14 sources) Urinary tract infectious disease; Translations: [Urinary tract infection, site not specified] Onset: 10-11-2024 04-20-2023 Episodic Results Test Name Value Interpretation Reference Range Facility Thyroid Peroxidase ABon 02-19 THYR PEROX AB 219 IU/mL High 0-34 [facility] Comment on above: Result Comment: Perf ormed at: [facility] [id number] Patient Accounts Specialist: Lucian Acevedo PhD, Phone: [phone] Performed By: #### L 3300.6900 #### [facility] [address] [place], [address] Serum or plasma thyroperoxid ase antibody assay (units/volume)Ordered By: Randee Stapleton on 03-08-2025 TPO Ab Qn 219 [IU]/mL High 0-34 [facility] Comment on above: Performed at: [facility] [address] [id number] Director: Lucian Acevedo PhD, Phone: [phone] Testosterone, Total / Freeon 02-13-2025 TESTOSTER,FREE 0.75 ng/dL Normal 0.10-0.85 [facility] Comment on above: Order Comment: N Performed By: #### L 801.2600, L3300.1750, L3100.5310 #### [facility] [address] [place], [address] TESTOSTER,TOTAL 31 ng/dL Normal 4-50 [facility] Comment on above: Order Comment: N Performed By: #### L 801.2600, L3300.1750, L3100.5310 #### [facility] [address] [place], [place], [id number] TESTOSTERONE,%F 2.43 Normal 0.50-2.80 [facility] Comment on above: Order Comment: N Result Comment: Perf ormed at: [facility] [employer] [id number] [place], [place] [id number] Patient Accounts Specialist: Lucian Acevedo PhD, Phone: [phone] Performed at: [facility] [address] [id number] Patient Accounts Specialist: Mary Betts MD, Phone: [phone] Performed By: #### L 801.2600, L3300.1750, L3100.5310 #### [facility] [address] [place], [place], [id number] PROGESTERONE 4317on 02-09-20 PROGESTERONE 2.2 ng/mL Normal . [facility] Comment on above: Order Comment: N Result Comment: Foll icular phase 0.1 - 0.9 Luteal phase 1.8 - 23.9 Ovulation phase 0.1 - 12.0 First trimester 11.0 - 44.3 Second trimester 25.4 - 83.3 Third trimester 58.7 - 214.0 Postmenopausal 0.0 - 0.1 Performed at: [address] [id number] Patient Accounts Specialist: Lucian Acevedo PhD, Phone: [phone] Performed By: #### L 801.2600, L3300.1750, L3100.5367 #### [facility] [address] [place], [place], [id number] Estradiolon 02-06-2025 ESTRADIOL 94.7 pg/mL Normal [facility] Comment on above: Result Comment: FEMA LES ADULT FEMALE: Premenopausal: 15-350 pg/mL(E2 levels vary widely through the menstrual cycle) Postmenopausal: <10 pg/mL JOE STAGES MEAN AGE REFERENCE RANGES Stage I(>14 days and prepubertal) 7.1 years Undetectable-20 pg/mLL Stage II 10.5 years Undetectable-24 pg/mL Stage III 11.6 years Undetectable-60 pg/mL Stage IV 12.3 years 15-85 pg/mL Stage V 14.5 years 15-350 pg/mL Puberty onset (transition from Joe stage I to Joe stage II) occurs for girls at a median age of 10.5 (/- 2) years. There is evidence that it may occur up to 1 year earlier in obese girls and in girls. Progression through Joe stages is variable. Joe stage V (adult) should be reached by age 18. Performed By: #### L 801.2600, L3300.1750, L3100.5310 #### [facility] [address] [place], [place], [id number] Free testosterone percentage Ordered By: Randee Stapleton on 02-06-2025 Testosterone Free/Testosterone.tota l [Mass fraction] 2.43 % 0.50-2.80 [facility] Comment on above: Performed at: [facility] - [address] [id number] Director: Lucian Acevedo PhD, Phone: [phone] at: - [facility] [id number] Director: Mary Betts MD, Phone: [phone] Serum or plasma estradiol me asurement after follitropin dose (mass/volume)Ordered By: Randee Stapleton on 02-06-2025 E2 post dose follitropin [Mass/Vol] 94.7 pg/mL [facility] Comment on above: FEMALES ADULT FEMALE : Premenopausal: 15-350 pg/mL(E2 levels vary widely through the menstrual cycle) Postmenopausal: <10 pg/mL JOE STAGES MEAN AGE REFERENCE RANGES Stage I(>14 days and prepubertal) 7.1 years Undetectable-20 pg/mLL Stage II 10.5 years Undetectable-24 pg/mL Stage III 11.6 years Undetectable-60 pg/mL Stage IV 12.3 years 15-85 pg/mL Stage V 14.5 years 15-350 pg/mL Puberty onset (transition from Joe stage I to Joe stage II) occurs for girls at a median age of 10.5 (/- 2) years. There is evidence that it may occur up to 1 year earlier in obese girls and in girls.Progression through Joe stages is variable. Joe stage V (adult) should be reached by age 18. Serum or plasma free testost erone measurement (mass/volume)Ordered By: Randee Stapleton on 02-06-2025 Testosterone Free [Mass/Vol] 0.75 ng/dL 0.10-0.85 [facility] Testosterone, totalOrdered B y: Randee Stapleton on 02-06-2025 Testosterone [Mass/Vol] 31 ng/dL 4-50 [facility] Thyroidon 06-05-2024 Thyroid [facility] [address], [place] [id number] Thyroid MR#: [id number] Acct: [id number] Name: SALOMON TEJEDA Rep #: [id number] : 1975 F 48 From: Tyler meyer MD PCP: TELLY Onofre Status: [facility] Study: Thyroid Date of Exam: 06/05/24 Exam# [id number] Ordering Dr: Randee Stapleton NP, NP-C [id number] STUDY: THYROID ULTRASOUND REASON FOR EXAM: Female, 48 years old. History of thyroid nodules. TECHNIQUE: Ultrasound evaluation of the thyroid was performed with real-time and static addison-scale imaging. COMPARISON: Comparison is made with prior study dated June 01, 2023. FINDINGS: RIGHT LOBE: The right lobe of the thyroid gland is enlarged and measures 5.3 cm x 1.2 cm x 2.1 cm. There is a heterogeneous echotexture. There is a 7 mm x 6 mm x 3 mm hypoechoic solid nodule with a increased vascularity in the anterior aspect of the right lobe. This is unchanged. LEFT LOBE: The left lobe of the thyroid gland is enlarged and measures 5.2 cm x 1.6 x 1.8 cm. There is a heterogeneous echotexture. There is a 1.4 cm x 1 cm x 0.6 on the complex solid and cystic nodule in the superior pole. This has decreased slightly in size. There is also evidence of a solid hypoechoic nodule in the superior pole measuring 7 mm x 5 mm x 5 mm. A similar-appearing hypoechoic solid nodule in the inferior pole measuring 8 mm x 8 mm x 7 mm is seen. This is unchanged. ISTHMUS: The isthmus measures 1.8 mm. The regional lymph nodes are normal. US/Thyroid IMPRESSION: Heterogeneous appearance of both lobes of thyroid gland with stable nodular densities as described. Electronically Signed: Tyler Quigley MD at 12:47 EST , CC: TELLY Stapleton Jigman: Signed Normal [facility] Absolute lymphocyte countOrd ered By: Avril Sofia on 10-07-2023 Lymphocytes Auto (Unsp spec) [#/Vol] 1.84 10*3/uL 0.83-4.51 [facility] Automated lymphocyte count a s percentage of total leukocytesOrdered By: Avril Santos on 10-07-2023 Lymphocytes/100 WBC Auto (Unsp spec) 31.8 % 19-41 [facility] Basophil percentageOrdered B y: Avril Santos on 10-07-2023 Basophils/100 WBC (Bld) 0.5 % 0-1 [facility] Bilirubin [Mass/Vol] 1.00 mg/dL 0.20-1.00 [facility] Comment on above: For patients on eltr ombopag therapy, use of Dimension Fouke TBIL is not recommended. Chloride [Moles/Vol] 108 mmol/L 98-107 [facility] Cholesterol [Mass/Vol] 198 mg/dL <200 [facility] Comment on above: <200 mg/dL Desirable 200-240 mg/dL Borderline >240 mg/dL High Risk Eosinophils/100 WBC (Bld) 1.0 % 0-5 [facility] Glucose [Mass/Vol] 87 mg/dL 74-106 [place] Hemoglobin (Bld) [Mass/Vol] 15.1 g/dL 12.0-15.0 [facility] Monocytes/100 WBC (Bld) 5.9 % 0-10 [facility] Neutrophils (Bld) [#/Vol] 3.5 10*3/uL 2.0-7.7 [facility] Neutrophils/100 WBC (Bld) 60.6 % 47-70 [facility] Potassium [Moles/Vol] 4.1 mmol/L 3.5-5.1 [facility] Protein [Mass/Vol] 7.2 g/dL 6.4-8.2 [place] Sodium [Moles/Vol] 138 mmol/L 136-145 [place] Triglyceride [Mass/Vol] 101 mg/dL <199 [facility] Comment on above: The drugs N-Acetylcy steine and Metamizole may falsely depress this assay.Serum Triglycerides Reference Interval Normal <150 mg/dL Borderline high 150 - 199 mg/dL High 200 - 499 mg/dL Very High > or = 500 mg/dL WBC (Bld) [#/Vol] 5.8 10*3/uL 4.4-11.0 [place] Determination of erythrocyte mean corpuscular volume (MCV)Ordered By: Avril Santos on 10-07-2023 MCV (RBC) [Entitic vol] 95.2 fL 81-99 [facility] Erythrocyte distribution wid th ratioOrdered By: Avril Santos on 10-07-2023 Erythrocyte distribution width (RBC) [Ratio] 11.9 % 11.6-14.6 [facility] Erythrocyte distribution wid th standard deviationOrdered By: Avril Santos on 10-07-2023 Erythrocyte distribution width (RBC) [Entitic vol] 41.7 fL 35.1-43.9 [facility] Hematocrit Auto (Bld) [Volum e fraction]Ordered By: Avril Santos on 10-07-2023 Hematocrit (Bld) [Volume fraction] 47.8 % 37-47 [facility] Immature granulocytes/100 WB C Auto (Bld)Ordered By: Avril Santos on 10-07-2023 Immature granulocytes/100 WBC (Bld) 0.200 % 0.0-0.9 [facility] Comment on above: IG% - Immature Granu locytes (promyelocytes, myelocytes and metamyelocytes) > 1% indicates that a LEFT SHIFT is Present. Laboratory - Chemistry and C hemistry - challengeOrdered By: Avril Santos on 10-07-2023 Albumin/Globulin [Mass ratio] 1.1 {ratio} 0.9-2.4 [facility] ALP [Catalytic activity/Vol] 54 U/L 45-117 [facility] ALT [Catalytic activity/Vol] 20 U/L 13-56 [facility] Cholesterol in HDL [Mass/Vol] 44 mg/dL >40 [facility] Comment on above: The drugs N-Acetylcy steine and Metamizole may falsely depress this assay. Reference Range HDL <40 mg/dL Low HDL Cholesterol HDL >or= 60 mg/dL High HDL Cholesterol Cholesterol in LDL [Mass/Vol] 134 mg/dL 0-130 [facility] CO2 [Moles/Vol] 27.0 mmol/L 21.0-32.0 [facility] Globulin (S) [Mass/Vol] 3.5 g/dL 2.2-4.2 [facility] Urea nitrogen/Creatinine [Mass ratio] 15.4 mg/mg 10-20 [facility] Laboratory - Hematology and Cell countsOrdered By: Avril Santos on 10-07-2023 MCH (RBC) [Entitic mass] 30.1 pg 27.0-32.0 [facility] MCHC (RBC) [Mass/Vol] 31.6 g/dL 32-36 [facility] Nucleated RBC/100 WBC (Bld) [Ratio] 0 % 0-5 [facility] Platelet mean volume (Bld) [Entitic vol] 11.6 fL 6.2-12.0 [facility] Platelets (Bld) [#/Vol] 258 10*3/uL 150-450 [facility] No Panel InformationOrdered By: Avril Santos on 10-07-2023 Estimated GFR (MDRD) Amer 92 mL/min >60 [facility] Comment on above: GFR Calc Estimated GFR (MDRD) Non-Af Amer 76 mL/min >60 [facility] Comment on above: Non- GFR Calc VLDL Cholesterol 20 mg/dL 5-40 [facility] RBC Auto (Bld) [#/Vol]Ordere d By: Avril Santos on 10-07-2023 RBC (Bld) [#/Vol] 5.02 10*6/uL 4.2-5.4 [facility] Serum or plasma calcium veronica urement (mass/volume)Ordered By: Avril Santos on 10-07-2023 Calcium [Mass/Vol] 8.8 mg/dL 8.5-10.1 [facility] r [facility] Serum or plasma creatinine m easurement (mass/volume)Ordered By: Avril Santos on 10-07-2023 Creatinine [Mass/Vol] 0.84 mg/dL 0.55-1.02 [facility] Comment on above: The validity of the calculated GFR & GFRAA in patients over 70 years has not been determined. Clinical correlation is essential. Serum or plasma thyroid stim ulating hormone (TSH) measurement (units/volume)Ordered By: Avril Santos on 10-07-2023 TSH Qn 1.95 uIU/mL 0.358-3.74 [facility] Serum or plasma urea nitroge n measurement (mass/volume)Ordered By: Avril [facility] on 10-07-2023 Urea nitrogen [Mass/Vol] 13 mg/dL 7-18 [facility] Thin prep Papanicolaou smear with manual screeningOrdered By: [facility] on 10-07-2023 Thin prep Papanicolaou smear with manual screening 3.7 g/dL 3.2-5.0 [facility] Thin prep Papanicolaou smear with manual screening 14 U/L 15-37 [facility] Thin prep Papanicolaou smear with manual screening 3 5-15 [facility] Thin prep Papanicolaou smear with manual screening 0.91 ng/dL 0.76-1.46 [facility] CT for calcium scoring WO co ntrast and CTA W contrast IV Heart and coronary arterieson 10-01-2023 1. Coronary artery c alcium score of 0*. *Coronary artery calcium scoring may be helpful in predicting the risk for future coronary heart disease events. According to the [employer] Clinical Expert Consensus Task Force, such testing provides important prognostic information in patients with more than one coronary heart disease risk factor. The coronary artery calcium score correlates with the annual risk of a non-fatal myocardial infarction or coronary heart disease . Coronary artery score Annual Risk 0-99 0.4% 100-399 1.3% >400 2.4% These three breakpoints correspond to lower, intermediate and high risk states for future coronary events. Such information should be used, along with appropriate clinical judgment, to make decisions regarding the intensity of risk factor management strategies to treat blood lipids and to modify other non-lipid coronary risk factors. Reference: Oviedo P et al. Circulation. 2007; 115:402-426 MACRO: None Signed by: Brittany Go 10/01/2023 10:07 AM Dictation workstation: [id number] MMODAL Interpreted By: Johana ji, Arezou, STUDY: CT CARDIAC SCORING WO IV CONTRAST; 09/30/2023 9:20 am INDICATION: Signs/Symptoms:Calcium Score. d COMPARISON: None. ACCESSION NUMBER(S): [id number] ORDERING CLINICIAN: ALEX HENRIQUEZ TECHNIQUE: Using prospective ECG gating, CT scan of the coronary arteries was performed without intravenous contrast. Coronary calcium scoring was performed according to the method of Agatston. FINDINGS: The score and distribution of calcium in the coronary arteries is as follows: LM 0 LAD 0 LCx 0 RCA 0 Total 0 The visualized mid/lower ascending thoracic aorta measures 2.5 cm in diameter. The heart is normal in size. No pericardial effusion is present. No gross evidence of mediastinal or hilar lymphadenopathy or masses is identified. The visualized segments of the lungs are hyperinflated. The visualized subdiaphragmatic structures appear intact. MMODAL Brittany Go MD - 10/01/2023 Interpreted By: Brittany Go, STUDY: CT CARDIAC SCORING WO IV CONTRAST; 09/30/2023 9:20 am INDICATION: Signs/Symptoms:Calcium Score. d COMPARISON: None. ACCESSION NUMBER(S): [id number] ORDERING CLINICIAN: ALEX HENRIQUEZ TECHNIQUE: Using prospective ECG gating, CT scan of the coronary arteries was performed without intravenous contrast. Coronary calcium scoring was performed according to the method of Agatston. FINDINGS: The score and distribution of calcium in the coronary arteries is as follows: LM 0 LAD 0 LCx 0 RCA 0 Total 0 The visualized mid/lower ascending thoracic aorta measures 2.5 cm in diameter. The heart is normal in size. No pericardial effusion is present. No gross evidence of mediastinal or hilar lymphadenopathy or masses is identified. The visualized segments of the lungs are hyperinflated. The visualized subdiaphragmatic structures appear intact. IMPRESSION: 1. Coronary artery calcium score of 0*. *Coronary artery calcium scoring may be helpful in predicting the risk for future coronary heart disease events. According to the [employer] Clinical Expert Consensus Task Force, such testing provides important prognostic information in patients with more than one coronary heart disease risk factor. The coronary artery calcium score correlates with the annual risk of a non-fatal myocardial infarction or coronary heart disease . Coronary artery score Annual Risk 0-99 0.4% 100-399 1.3% >400 2.4% These three breakpoints correspond to lower, intermediate and high risk states for future coronary events. Such information should be used, along with appropriate clinical judgment, to make decisions regarding the intensity of risk factor management strategies to treat blood lipids and to modify other non-lipid coronary risk factors. Reference: Oviedo P et al. Circulation. 2007; 115:402-426 MACRO: None Signed by: Brittany Go 10/01/2023 10:07 AM Dictation workstation: [id number] [facility] Work Phone: CT for calcium scoring WO co ntrast and CTA W contrast IV Heart and coronary arteriesOrdered By: Brittany Go on 10-01-[address] [facility] Work Phone: CT CARDIAC SCORING WO IV CON TRASTon 09-30-2023 CT CARDIAC SCORING WO IV CONTRAST Interpreted By: Brittany Go, STUDY: CT CARDIAC SCORING WO IV CONTRAST; 09/30/2023 9:20 am INDICATION: Signs/Symptoms:Calcium Score. d COMPARISON: None. ACCESSION NUMBER(S): [id number] ORDERING CLINICIAN: ALEX HENRIQUEZ TECHNIQUE: Using prospective ECG gating, CT scan of the coronary arteries was performed without intravenous contrast. Coronary calcium scoring was performed according to the method of Agatston. FINDINGS: The score and distribution of calcium in the coronary arteries is as follows: LM 0 LAD 0 LCx 0 RCA 0 Total 0 The visualized mid/lower ascending thoracic aorta measures 2.5 cm in diameter. The heart is normal in size. No pericardial effusion is present. No gross evidence of mediastinal or hilar lymphadenopathy or masses is identified. The visualized segments of the lungs are hyperinflated. The visualized subdiaphragmatic structures appear intact. IMPRESSION: 1. Coronary artery calcium score of 0*. *Coronary artery calcium scoring may be helpful in predicting the risk for future coronary heart disease events. According to the [employer] Clinical Expert Consensus Task Force, such testing provides important prognostic information in patients with more than one coronary heart disease risk factor. The coronary artery calcium score correlates with the annual risk of a non-fatal myocardial infarction or coronary heart disease . Coronary artery score Annual Risk 0-99 0.4% 100-399 1.3% >400 2.4% These three breakpoints correspond to lower, intermediate and high risk states for future coronary events. Such information should be used, along with appropriate clinical judgment, to make decisions regarding the intensity of risk factor management strategies to treat blood lipids and to modify other non-lipid coronary risk factors. Reference: Sheeba P et al. Circulation. 2007; 115:402-426 MACRO: None Signed by: Brittany Go 10/01/2023 10:07 AM Dictation workstation: [id number] [facility] CT for calcium scoring WO co ntrast and CTA W contrast IV Heart and coronary arterieson 09-30-2023 Radiology Study observation (narrative) [facility] Work Phone: CNOVon 07-23-2023 CNOV Office Visit (SWS ) SALOMON TEJEDA ([id number]) 1975 F Date Time Provider Department 07/23/23 3:15 PM RAVEN TAMEZ During your visit today, we recorded the following information about you: Temperature Pulse Blood pressure Weight 98.6 degrees 94/minute 122/78 65.9 kg Height 1.626 m Raven Tamez MD 07/24/2023 2:38 PM Signed Salomon Tejeda 1975 REFERRING PHYSICIAN: No ref. 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 PAST MEDICAL HISTORY Diagnosis Date Constipation SAHIL (generalized anxiety disorder) Patrice's thyroiditis Iron deficiency anemia, unspecified OAB (overactive bladder) OCD (obsessive compulsive disorder) Polydipsia Thyroid nodule Thyroid nodule 06/01/2023 Undiagnosed cardiac murmurs PAST SURGICAL HISTORY Procedure Laterality Date COLONOSCOPY FLX DX W/COLLJ SPEC WHEN PFRMD 12/20/2012 EGD TRANSORAL BIOPSY SINGLE/MULTIPLE 12/20/2012 h.pylori + EXTRACTION, ERUPTED TOOTH OR EXPOSED ROOT (ELEVATION AND/OR FORCEPS REMOVAL) THYROID FINE NEEDLE ASPIRATION Left 07/13/2023 Current Outpatient Medications Medication Sig magnesium oxide,aspartate,citr (TRIPLE MAGNESIUM COMPLEX) 400 mg magnesium cap Take by mouth. OTC PRODUCT Take 1 capsule by mouth once daily. Cranberry and D-mannose combined Norethin-Eth Estrad Triphasic (NYLIA ,) 0.5/0.75/1 mg- 35 mcg per tablet Take 1 tablet by mouth once daily. amitriptyline (ELAVIL) 10 mg tablet Take 25 mg by mouth daily at bedtime. L. acidophilus/Bifido. longum (LACTOBACILLUS ACIDOPH AND BIFID ORAL) Take 1 capsule by mouth once daily. vibegron (GEMTESA) 75 mg tablet Take 75 mg by mouth once daily. loratadine (CLARITIN) 10 mg tablet Take 1 tablet by mouth once daily as needed. FOR ALLERGY SYMPTOMS polyethylene glycol 3350 (MIRALAX ORAL) Take 17 g by mouth once daily. (Patient not taking: Reported on 07/23/2023) ASHWAGANDHA EXTRACT ORAL Take 500 mg by mouth once daily. (Patient not taking: Reported on 07/07/2023) Ferrous Sulfate 325 mg (65 mg iron) tablet Take 1 tablet by mouth twice daily. (Patient not taking: Reported on 07/23/2023) Norethindrone-Eth Estradiol (ORTHO-NOVUM ,) 1-35 mg-mcg per tablet Take 1 tablet by mouth once daily. (Patient not taking: Reported on 07/23/2023) No current facility-administered medications for this visit. ALLERGIES: Amoxicillin, Ciprofloxacin, Penicillins, and Seasonal Allergies REVIEW OF SYSTEMS: Denies pain in the area PHYSICAL EXAMINATION: General: The patient is 47 year old female, well nourished, well hydrated in no acute distress. The patient is oriented to time, place, and person. VITALS: Blood pressure 122/78, pulse 94, temperature 37 ?C (98.6 ?F), height 162.6 cm (5' 4), weight 65.9 kg (145 lb 3.2 oz), last menstrual period 07/06/2023, SpO2 97%. Body mass index is 24.92 kg/m?. Neck supple with no masses Assessment IMPRESSION: lymphocytic thyroiditis PLAN: I have discussed above with the patient. She may develop hypothyroidism with this thyroiditis. She will return to her PCP for follow up. Patient acknowledges above. Diagnoses: (E06.3) Lymphocytic thyroiditis (primary encounter diagnosis) I have confirmed and edited as necessary, the PFSH and ROS obtained by others. Medical Decision Making: Problems: Low: Acute, uncomplicated illness or injury Medical Decision Making Level: 2 - Straightforward __ Raven Tamez MD 07/15/2022 left thyroid FNA Allergies As of Date: 07/23/2023 Noted Allergy Reaction AMOXICILLIN 12/28/2011 4 - Hives CIPROFLOXACIN 07/06/2023 14 - Other: See Comments Comments: Tingling in hands PENICILLINS 12/17/2012 4 - Hives SEASONAL ALLERGIES 12/28/2011 14 - Other: See Comments Comments: sneezing Date Reviewed: 07/23/2023 Reviewed by: Enedina Lugo LPN - Fully Assessed Reason for Visit: Follow Up [171] Cmt: FNA thyroid left Primary Visit Diagnosis:Lymphocytic thyroiditis [E06.3] Prescriptions as of 07/24/2023 - magnesium oxide,aspartate,citr (TRIPLE MAGNESIUM COMPLEX) 400 mg magnesium cap Take by mouth. - OTC PRODUCT Take 1 capsule by mouth once daily. Cranberry and D-mannose combined - Norethin-Eth Estrad Triphasic (NYLIA 7/7/7, 28,) 0.5/0.75/1 mg- 35 mcg per tablet Take 1 tablet by mouth once daily. - amitriptyline (ELAVIL) 10 mg tablet Take 25 mg by mouth daily at bedtime. - polyethylene glycol 3350 (MIRALAX ORAL) Take 17 g by mouth once daily. - L. acidophilus/Bifido. longum (LACTOBACILLUS ACIDOPH AND BIFID ORAL) Take 1 capsule by mouth once daily. - ASHWAGANDHA EXTRACT ORAL Take 500 mg by mouth once daily. - vibegron (GEMTESA) 75 mg tablet Take 75 mg by mouth on (more content not included)... Normal [facility] CNOVon 07-13-2023 CNOV Office Visit (GENSWS ) ILEANAGUSTAVOSALOMON L ([id number]) 1975 F Date Time Provider Department 07/13/23 11:15 AM RAVEN TAMEZ During your visit today, we recorded the following information about you: Raven Tamez MD 07/13/2023 4:45 PM Signed Salomon presents for US guided FNA of left thyroid nodule PROCEDURE NOTE: After informed consent was given and patient gives permission for the procedure, the patient was in the supine position with neck in slight extension. Appropriate time out protocol was followed. The ultrasound machine was used for real time imaging. The anterior neck skin was cleansed with a sterile surgical skin preparation. The skin and subcutaneous tissues were infiltrated with 1% xylocaine with epinephrine. The ultrasound transducer probe was brought up to localize the thyroid nodules. The left thyroid nodule was identified with the US transducer. It was located in the mid to upper pole. It was about 1.8 cm in maximum dimension A 22 G needle was inserted into the nodule under US guidance. Several passes were made to ensure obtaining enough material. The needle was withdrawn. Smear slides were made and also the specimen was placed in a formalin solution and forwarded to pathology. The above was repeated with a new 22 G needle attached to a 10 cc syringe. This was done to ensure adequate sampling. This process was again repeated until adequate sampling was deemed to be achieved. The specimens were then forwarded to pathology. Hemostasis was achieved by pressure. A small bandaid was applied to both locations and patient told that she could remove it tomorrow. No evidence of bleeding noted. Patient tolerated procedure well. Complications - none EBL - minimal PLAN: Wound care instructions given by clinic staff. Patient to follow up via televisit for discussion of results. Patient acknowledges the above. Patient to follow up with telehealth visit next week. Patient acknowledges the above. Leela Cobian RN 07/13/2023 11:46 AM Signed UNIVERSAL PROTOCOL / SAFETY CHECKLIST Procedure to be Performed: US guided FNA of left thyroid nodule Sign In: A Moment of CARE was completed. Personnel directly involved with the procedure wore the appropriate PPE (Personal Protective Equipment). No special equipment needed. Patient/Surrogate Stated/Verified: PATIENT VERIFIED(optional for EMERGENT procedures): Patient name, Date of , Relevant allergies, and The intended procedure Time Out Communication: Intended patient and procedure match the source documents. Consent documented and matches the intended procedure. Relevant labs, photos, and/or imaging studies have been reviewed. Correct side/site marked and visible. Medications required for procedure verified. No fire risk assessment and interventions applicable. No implant(s) inserted. Sign Out: SIGN OUT (optional for EMERGENT procedures): All specimen containers correctly labeled. All instruments, equipment, possible retained foreign bodies accounted for. Post-procedure follow-up management communicated and Plan of Care Visit completed when applicable. FAUZIA Bah Billie, RN 07/13/2023 11:33 AM Signed The following instructions are important for you related to your office visit today with the [facility] Surgeons. Instructions After THYROID FINE NEEDLE ASPIRATION Please do not take aspirin or other blood thinners for the next few days. If you have bleeding from the needle site, hold pressure with a clean gauze. If the bleeding continues, contact our office immediately. I recommend taking Advil or Tylenol for the discomfort. An ice pack may improve your discomfort to the area. Contact our office immediately if you have any questions or concerns @ [phone]. Please make an appointment to follow up in one week with your Dr Tamez and thank you for choosing the [facility]. If you note any additional difficulties, questions, or concerns, you should contact our office immediately @ [phone] and ask to be transferred to the General Surgery department. Allergies As of Date: 07/13/2023 Noted Allergy Reaction AMOXICILLIN 12/28/2011 4 - Hives CIPROFLOXACIN 07/06/2023 14 - Other: See Comments Comments: Tingling in hands PENICILLINS 12/17/2012 4 - Hives SEASONAL ALLERGIES 12/28/2011 14 - Other: See Comments Comments: sneezing Date Reviewed: 07/07/2023 Reviewed by: Ivania Galdamez LPN - Fully Assessed Reason for Visit: Procedure [88] Cmt: FNA Lt thyroid Primary Visit Diagnosis:Abnormal ultrasound of thyroid gland [R93.89] Order(s):US THYROID BIOPSY LEFT (POC) SURG USE ONLY [3919990] Order #: [id number]. #:[id number]: 1 SURGICAL PATHOLOGY [GEQ9492] Order #: [id number]. #:[id number] CYTOLOGY NON-GUARD SUPERVISOR [[id number]] Order #: 21 (more content not included)... Normal [facility] CYTOLOGY NON-GYNon 4 CASE REPORT Normal [facility] Comment on above: Order Comment: Speci men Type: FLUID SPECIMEN Ordering Facility: [facility] Address: [address] [place] [address] Result Comment: [facility] Cytology Report Case: [id number] Authorizing Provider: Raven Tamez MD Collected: 07/13/2023 12:03 PM Ordering Location: General Surgery Received: 07/13/2023 04:28 PM Pathologist: Krishan Schwartz MD Specimen: THYROID LEFT FINE NEEDLE ASPIRATION Performed By: #### C YTONON #### [facility] CLIA [id number] [address] [place] [address] [place] CLINICAL HISTORY Normal [facility] Comment on above: Order Comment: Mulugeta rviera Type: FLUID SPECIMEN Ordering Facility: [facility] Address: [address] [place] [address] Result Comment: abno rmal ultrasound Afirma requested. Performed By: #### C YTONON #### [facility] CLIA [id number] [address] [place] [address] [place] FINAL DIAGNOSIS Normal [facility] Comment on above: Order Comment: Mulugeta rivera Type: FLUID SPECIMEN Ordering Facility: [facility] Address: [address] [place] [address] Result Comment: A - THYROID LEFT FINE NEEDLE ASPIRATION Benign. Lymphocytic thyroiditis The following cell blocks were associated with this case: A1 Cell Block, Alcohol Fixed Performed By: #### C YTONON #### [facility] CLIA [id number] [address] [place] [address] OF [place] FINAL PERFORMING LAB Normal [facility] Comment on above: Order Comment: Speci men Type: FLUID SPECIMEN Ordering Facility: [facility] Address: [address] [place] [address] Result Comment: Tech nical component, director paid media screening performed at [facility], [address] [place] [address] CLIA# [id number] Diagnostic interpretation performed at [facility], [address] [place] [address] CLIA# [id number] Neonatal Intensive Care Nurse: Deshaun Gibson M.D. Performed By: #### C YTMODESTO #### [facility] CLIA [id number] [address] [place] [address] OF [facility] GROSS DESCRIPTION Normal [facility] Comment on above: Order Comment: Speci men Type: FLUID SPECIMEN Ordering Facility: [facility] Address: [address] [place] [address] Result Comment: A. T HYROID LEFT FINE NEEDLE ASPIRATION 30 cc clear light pink CytoLyt with scant particles. ThinPrep and Cell Block prepared and 4 smears. Afirma sample received. Performed By: #### C YTONON #### [facility] CLIA [id number] [address] [place] [address] [place] CNOVon 07-07-2023 CNOV Office Visit (GENSWS ) SALOMON TEJEDA ([id number]) 1975 F Date Time Provider Department 07/07/23 2:45 PM RAVEN TAMEZ During your visit today, we recorded the following information about you: Temperature Pulse Respiration Blood pressure 98.6 degrees 106/minute 14/minute 130/88 Weight Height Last Period 64.7 kg 1.626 m 07/06/23 Ivania Galdamez LPN 07/07/2023 3:07 PM Signed REVIEW OF SYSTEMS: General: The patient denies fatigue, denies weight loss, denies weight gain, denies feeling hot, and denies feelings of cold. Eyes: The patient denies glaucoma, denies eye injury/surgery, wears contacts. Ear/Nose/Throat: The patient denies allergies, denies hayfever, denies ear infections, and denies bloody noses. Cardiovascular: The patient denies chest pain, denies heart disease, denies high blood pressure,denies cardiac stent, denies prior heart attack, denies irregular heart beat, denies high cholesterol, denies poor circulation, denies heart failure, other cardiac issues, denies claudication, denies cold feet, denies peripheral arterial stent. Respiratory: The patient denies tuberculosis, denies pneumonia, denies frequent cough, denies pulmonary embolism, denies shortness of breath, and denies coughing up blood. Gastrointestinal: The patient denies difficulty swallowing, denies acid reflux, denies ulcers, denies vomiting, denies jaundice/hepatitis, denies gallbladder problems, denies black or tarry stools, notes hemorrhoids, denies bleeding from rectum, denies diverticulitis, denies constipation, denies diarrhea, denies loss of stool control, and denies hernias. Kidney/Bladder: The patient denies kidney stones, notes urine indeniesfections, and bloody urine. Skin: The patient denies a history of skin cancer, denies bleeding/changing moles, and denies a history of skin rash. Neurologic: The patient denies a history of epilepsy/convulsions, denies headaches, denies head/spinal injuries, and denies stroke/TIA. Psychiatric: The patient denies psychiatric medications, denies depression, and denies voices, denies substance abuse. Endocrine: The patient denies thyroid disorders, denies diabetes, and denies hormonal problems. Hematologic: The patient denies a history of bruising, denies bleeding, and notes anemia, denies blood clots. Infections: The patient denies a history of measles and mumps, denies rheumatic fever, and denies sexually transmitted diseases. Musculoskeletal: The patient denies back pain/injury, denies back problems, denies sciatica, denies knee/foot trouble, denies arthritis, or denies gout. When was patient's last Mammogram screening? 02/2022, 04/01/2023 Last Colonoscopy: 2012 MARY ANN Mohan, Raven Zhao MD 07/08/2023 1:15 PM Signed Salomon Tejeda 1975 REFERRING PHYSICIAN: No ref. provider found CHIEF COMPLAINT: Consult HPI: The patient is a 47 year old female presents with abnormal ultrasound of thyroid gland She is presently undergoing workup for abnormal thyroid hormone tests (no records available of this) She underwent US imaging and was found to have multinodular goiter with recommendations by radiologist for FNA of an abnormal left thyroid nodule. [facility] 06/01/2023 - US thyroid - 1.8 left thyroid nodule - FNA rec'd She denies globus symptoms. She denies hoarseness. She denies swallowing difficulties. She denies exposure to unusual radiation. She denies history of thyroiditis. She denies taking any thyroid hormones. She notes no family history of thyroid cancer. PAST MEDICAL HISTORY Diagnosis Date Constipation SAHIL (generalized anxiety disorder) Patrice's thyroiditis Iron deficiency anemia, unspecified OAB (overactive bladder) OCD (obsessive compulsive disorder) Polydipsia Thyroid nodule Thyroid nodule 06/01/2023 Undiagnosed cardiac murmurs PAST SURGICAL HISTORY Procedure Laterality Date COLONOSCOPY FLX DX W/COLLJ SPEC WHEN PFRMD 12/20/2012 EGD TRANSORAL BIOPSY SINGLE/MULTIPLE 12/20/2012 h.pylori + EXTRACTION, ERUPTED TOOTH OR EXPOSED ROOT (ELEVATION AND/OR FORCEPS REMOVAL) Current Outpatient Medications Medication Sig OTC PRODUCT Take 1 capsule by mouth once daily. Cranberry and D-mannose combined Norethin-Eth Estrad Triphasic (NYLIA , 28,) 0.5/0.75/1 mg- 35 mcg per tablet Take 1 tablet by mouth once daily. amitriptyline (ELAVIL) 10 mg tablet Take 10 mg by mouth daily at bedtime. L. acidophilus/Bifido. longum (LACTOBACILLUS ACIDOPH AND BIFID ORAL) Take 1 capsule by mouth once daily. vibegron (GEMTESA) 75 mg tablet Take 75 mg by mouth once daily. polyethylene glycol 3350 (MIRALAX ORAL) Take 17 g by mouth once daily. ASHWAGANDHA EXTRACT ORAL Take 500 mg by mouth once daily. (Patient not taking: Reported on 07/07/2023) Ferrous Sulfate 325 mg (65 mg iron) tablet Take 1 tablet by (more content not included)... Normal [facility] Absolute lymphocyte countOrd ered By: Avril Santos on 05-21-2023 Lymphocytes Auto (Unsp spec) [#/Vol] 1.71 10*3/uL 0.83-4.51 [facility] Basophil percentageOrdered B y: Avril Santos on 05-21-2023 Basophil percentage 0 SEEN /hpf 0-5 [facility] Basophils/100 WBC (Bld) 0.5 % 0-1 [facility] Eosinophils/100 WBC (Bld) 0.5 % 0-5 [facility] Neutrophils (Bld) [#/Vol] 5.8 10*3/uL 2.0-7.7 [facility] Neutrophils/100 WBC (Bld) 73.1 % 47-70 [facility] WBC (Bld) [#/Vol] 7.9 10*3/uL 4.4-11.0 [place] Bilirubin Test strip Ql (U)O rdered By: Avril Santos on 05-21-2023 Bilirubin Ql (U) Negative Negative [facility] Blood erythrocytes count (nu mber/volume)Ordered By: Avril Santos on 05-21-2023 RBC (Bld) [#/Vol] 5.22 10*6/uL 4.2-5.4 [facility] Blood hemoglobin measurement (mass/volume)Ordered By: Avril Santos on 05-21-2023 Hemoglobin (Bld) [Mass/Vol] 15.5 g/dL 12.0-15.0 [facility] Blood lymphocytes/100 leukoc ytesOrdered By: Avril Santos on 05-21-2023 Lymphocytes/100 WBC (Bld) 21.6 % 19-41 [facility] Blood monocytes/100 leukocyt esOrdered By: Avril Santos on 05-21-2023 Monocytes/100 WBC (Bld) 4.0 % 0-10 [facility] Blood platelet mean volumeOr dered By: Avril Santos on 05-21-2023 Platelet mean volume (Bld) [Entitic vol] 10.9 fL 6.2-12.0 [facility] Determination of erythrocyte mean corpuscular volume (MCV)Ordered By: Avril Santos on 05-21-2023 MCV (RBC) [Entitic vol] 95.6 fL 81-99 [facility] Hematocrit Auto (Bld) [Volum e fraction]Ordered By: Avril Santos on 05-21-2023 Hematocrit (Bld) [Volume fraction] 49.9 % 37-47 [facility] Ketones Test strip Ql (U)Ord ered By: Avril Santos on 05-21-2023 Ketones Ql (U) 5 mg/dl Negative [facility] Laboratory - Chemistry and C hemistry - challengeOrdered By: Avril Santos on 05-21-2023 Free T4 [Mass/Vol] 0.91 ng/dL 0.76-1.46 [place] [facility] - Hematology and Cell countsOrdered By: Avril Santos on 05-21-2023 Erythrocyte distribution width (RBC) [Entitic vol] 42.2 fL 35.1-43.9 [facility] Erythrocyte distribution width (RBC) [Ratio] 11.9 % 11.6-14.6 [facility] Immature granulocytes/100 WBC (Bld) 0.300 % 0.0-0.9 [facility] Comment on above: IG% - Immature Granu locytes (promyelocytes, myelocytes and metamyelocytes) > 1% indicates that a LEFT SHIFT is Present. MCH (RBC) [Entitic mass] 29.7 pg 27.0-32.0 [facility] Nucleated RBC/100 WBC (Bld) [Ratio] 0 % 0-5 [facility] MCHC Auto (RBC) [Mass/Vol]Or dered By: Avril Santos on 05-21-2023 MCHC (RBC) [Mass/Vol] 31.1 g/dL 32-36 [facility] Mucus LM Ql (Urine sed)Order ed By: Avril Santos on 05-21-2023 Mucus Ql (Urine sed) 0 SEEN /hpf [facility] Nitrite Test strip Ql (U)Ord ered By: Avril Santos on 05-21-2023 Nitrite Ql (U) Negative Negative [facility] No Panel InformationOrdered By: Avril Santos on 05-21-2023 Thyroglobulin Antibody 333.6 IU/mL 0.0-0.9 [facility] Comment on above: Thyroglobulin Antibo dy measured by [employer] Thyroid Stimulating Hormone (TSH) 1.70 uIU/mL 0.358-3.74 [facility] Platelets bldOrdered By: Dago Santos on 05-21-2023 Platelets (Bld) [#/Vol] 285 10*3/uL 150-450 [facility] Protein Test strip Ql (U)Ord ered By: Avril Santos on 05-21-2023 Protein Ql (U) Negative Negative [facility] Serum or plasma thyroperoxid ase antibody assay (units/volume)Ordered By: Avril Santos on 05-21-2023 TPO Ab Qn 220 [IU]/mL 0-34 [facility] Comment on above: Performed at: [employer] [address] [id number] Director: Mary Betts MD, Phone: [phone] at: [facility] [employer] [id number] Director: Lucian Acevedo PhD, Phone: [phone] at: [facility] [employer] [address] [id number] Director: Nasir Mi MD, Phone: [phone] Squamous epithelial cells de tection in urine sediment by light microscopyOrdered By: Avril Santos on 05-21-2023 Epithelial cells.squamous LM Ql (Urine sed) 0 SEEN /hpf 5-10 [facility] Thyroglobulin measurement by radioimmunoassay (ANGE)Ordered By: Avril Santos on 05-21-2023 Thyroglobulin Ab ANGE Qn (S) 5.8 ng/mL . [facility] Comment on above: This test was develo ped and its performance characteristicsdetermined by [employer]. It has not been cleared or approvedby the Food and Drug Administration.Reference Range:Pubertal Childrenand Adults: <40According to the National Academy of Clinical Biochemistry,the reference interval for Thyroglobulin (TG) should berelated to euthyroid patients and not for patients whounderwent thyroidectomy. TG reference intervals for thesepatients depend on the residual mass of the thyroid tissueleft after surgery. Establishing a post-operative baselineis recommended. The assay quantitation limit is 2.0 ng/mL. Thyroid stimulating immunogl obulins detectionOrdered By: Avril Santos on 05-21-2023 Thyroid stimulating immunoglobulins Ql (S) <0.10 IU/L 0.00-0.55 [facility] Urine blood detectionOrdered By: Avril Santos on 05-21-2023 RBC Ql (U) 150 /ul Negative [facility] RBC Ql (U) 0 SEEN /hpf 0-5 [facility] Urine clarityOrdered By: Dago Santos on 05-21-2023 Clarity (U) Clear Clear [facility] Urine color determinationOrd ered By: Avril Santos on 05-21-2023 Color (U) Yellow Yellow [facility] Urine glucose detectionOrder ed By: Avril Santos on 05-21-2023 Glucose Ql (U) Normal mg/dl Normal [facility] Urine leukocyte esterase det ection by dipstickOrdered By: Avril Santos on 05-21-2023 Leukocyte esterase Test strip Ql (U) 100 /ul Negative [facility] Urine pHOrdered By: Avril alvarez on 05-21-2023 pH (U) 6.0 [pH] 5.0 - 8.0 [facility] Urine sediment bacteria coun t by microscopy (number/high power field)Ordered By: Avril Santos on 05-21-2023 Bacteria LM.HPF (Urine sed) [#/Area] 0 /[HPF] None Seen [facility] Urine specific gravity measu rementOrdered By: Avril Santos on 05-21-2023 Specific gravity (U) [Rel density] 1.015 1.002-1.03 0 [facility] Urobilinogen Auto test strip Ql (U)Ordered By: Avril Santos on 05-21-2023 Urobilinogen Ql (U) Normal mg/dl Normal [facility] Whole blood hemoglobin A1c/t otal hemoglobin ratio (mass fraction)Ordered By: Avril Santos on 05-21-2023 HbA1c (Bld) [Mass fraction] 5.3 % 3.8-5.6 [facility] Comment on above: Normal < 5.7 % Predi abetic 5.7 - 6.4 % Diabetic >or= 6.5 % Please note range changes. Absolute lymphocyte countOrd ered By: Jarad Torres on 04-22-2023 Lymphocytes Auto (Unsp spec) [#/Vol] 2.00 10*3/uL 0.83-4.51 [facility] Basophil percentageOrdered B y: Jarad Torres on 04-22-2023 Basophil percentage 5-10 SEEN /hpf 0-5 [facility] Basophils/100 WBC (Bld) 0.5 % 0-1 [facility] Chloride [Moles/Vol] 104 mmol/L 98-107 [facility] Eosinophils/100 WBC (Bld) 0.7 % 0-5 [facility] Glucose [Mass/Vol] 140 mg/dL 74-106 [place] Comment on above: Fasting Glucose resu lt greater than or equal to 126 mg/dL suggests DIABETES MELLITUS per A.D.A. criteria. Neutrophils (Bld) [#/Vol] 5.5 10*3/uL 2.0-7.7 [facility] Neutrophils/100 WBC (Bld) 67.8 % 47-70 [facility] Potassium [Moles/Vol] 3.7 mmol/L 3.5-5.1 [facility] Sodium [Moles/Vol] 140 mmol/L 136-145 [place] WBC (Bld) [#/Vol] 8.1 10*3/uL 4.4-11.0 [place] Bilirubin Test strip Ql (U)O rdered By: Jarad Torres on 04-22-2023 Bilirubin Ql (U) Negative Negative [facility] Blood erythrocytes count (nu mber/volume)Ordered By: Jarad Torres on 04-22-2023 RBC (Bld) [#/Vol] 5.06 10*6/uL 4.2-5.4 [facility] Blood hemoglobin measurement (mass/volume)Ordered By: Jarad Torres on 04-22-2023 Hemoglobin (Bld) [Mass/Vol] 15.3 g/dL 12.0-15.0 [facility] Blood lymphocytes/100 leukoc ytesOrdered By: Jarad Torres on 04-22-2023 Lymphocytes/100 WBC (Bld) 24.6 % 19-41 [facility] Blood monocytes/100 leukocyt esOrdered By: Jarad Torres on 04-22-2023 Monocytes/100 WBC (Bld) 6.2 % 0-10 [facility] Blood platelet mean volumeOr dered By: Jarad Torres on 04-22-2023 Platelet mean volume (Bld) [Entitic vol] 10.6 fL 6.2-12.0 [facility] Culture, urineOrdered By: Do simona Torres on 04-22-2023 Bacteria identified Cx Nom (U) Staphylococcus haemolyticus [facility] Determination of erythrocyte mean corpuscular volume (MCV)Ordered By: Jarad Torres on 04-22-2023 MCV (RBC) [Entitic vol] 94.7 fL 81-99 [facility] Hematocrit Auto (Bld) [Volum e fraction]Ordered By: Jarad Torres on 04-22-2023 Hematocrit (Bld) [Volume fraction] 47.9 % 37-47 [facility] Ketones Test strip Ql (U)Ord ered By: Jarad Torres on 04-22-2023 Ketones Ql (U) Negative Negative [facility] Laboratory - Chemistry and C hemistry - challengeOrdered By: Jarad Torres on 04-22-2023 CO2 [Moles/Vol] 32.0 mmol/L 21.0-32.0 [facility] Urea nitrogen/Creatinine [Mass ratio] 13.9 mg/mg 10-20 [facility] Laboratory - Hematology and Cell countsOrdered By: Jarad Torres on 04-22-2023 Erythrocyte distribution width (RBC) [Entitic vol] 41.0 fL 35.1-43.9 [facility] Erythrocyte distribution width (RBC) [Ratio] 11.9 % 11.6-14.6 [facility] Immature granulocytes/100 WBC (Bld) 0.200 % 0.0-0.9 [facility] Comment on above: IG% - Immature Granu locytes (promyelocytes, myelocytes and metamyelocytes) > 1% indicates that a LEFT SHIFT is Present. MCH (RBC) [Entitic mass] 30.2 pg 27.0-32.0 [facility] Nucleated RBC/100 WBC (Bld) [Ratio] 0 % 0-5 [facility] MCHC Auto (RBC) [Mass/Vol]Or dered By: Jarad Torres on 04-22-2023 MCHC (RBC) [Mass/Vol] 31.9 g/dL 32-36 [facility] Mucus LM Ql (Urine sed)Order ed By: Jarad Torres on 04-22-2023 Mucus Ql (Urine sed) 0 SEEN /hpf [facility] Nitrite Test strip Ql (U)Ord ered By: Jarad Torres on 04-22-2023 Nitrite Ql (U) Negative Negative [facility] No Panel InformationOrdered By: Jarad Torres on 04-22-2023 Estimated Creatinine Clearance Calc 62.52 ml/min [facility] Estimated GFR (MDRD) Amer 81 mL/min >60 [facility] Comment on above: GFR Calc Estimated GFR (MDRD) Non-Af Amer 67 mL/min >60 [facility] Comment on above: Non- GFR Calc Platelets bldOrdered By: Sergey Torres on 04-22-2023 Platelets (Bld) [#/Vol] 312 10*3/uL 150-450 [facility] Protein Test strip Ql (U)Ord ered By: Jarad Torres on 04-22-2023 Protein Ql (U) Negative Negative [facility] Serum or plasma calcium veronica urement (mass/volume)Ordered By: Jarad Torres on 04-22-2023 Calcium [Mass/Vol] 8.9 mg/dL 8.5-10.1 [place] Serum or plasma creatinine m easurement (mass/volume)Ordered By: Jarad Torres on 04-22-2023 Creatinine [Mass/Vol] 0.94 mg/dL 0.55-1.02 [facility] Comment on above: The validity of the calculated GFR & GFRAA in patients over 70 years has not been determined. Clinical correlation is essential. Serum or plasma urea nitroge n measurement (mass/volume)Ordered By: Jarad Torres on 04-22-2023 Urea nitrogen [Mass/Vol] 13 mg/dL 7-18 [facility] Squamous epithelial cells de tection in urine sediment by light microscopyOrdered By: Jarad Torres on 04-22-2023 Epithelial cells.squamous LM Ql (Urine sed) 0-5 SEEN /hpf 5-10 [facility] Thin prep Papanicolaou smear with manual screeningOrdered By: Jarad Torres on 04-22-2023 Thin prep Papanicolaou smear with manual screening 4 5-15 [facility] Urine blood detectionOrdered By: Jarad Torres on 04-22-2023 RBC Ql (U) 150 /ul Negative [facility] RBC Ql (U) 0-5 SEEN /hpf 0-5 [facility] Urine clarityOrdered By: Sergey Torres on 04-22-2023 Clarity (U) Clear Clear [facility] Urine color determinationOrd ered By: Jarad Torres on 04-22-2023 Color (U) Yellow Yellow [facility] Urine glucose detectionOrder ed By: Jarad Torres on 04-22-2023 Glucose Ql (U) Normal mg/dl Normal [facility] Urine leukocyte esterase det ection by dipstickOrdered By: Jarad Torres on 04-22-2023 Leukocyte esterase Test strip Ql (U) 100 /ul Negative [facility] Urine pHOrdered By: Jarad alex on 04-22-2023 pH (U) 5.0 [pH] 5.0 - 8.0 [facility] Urine sediment bacteria coun t by microscopy (number/high power field)Ordered By: Jarad Torres on 04-22-2023 Bacteria LM.HPF (Urine sed) [#/Area] RARE /hpf None Seen [facility] Urine specific gravity measu rementOrdered By: Jarad Torres on 04-22-2023 Specific gravity (U) [Rel density] 1.015 1.002-1.03 0 [facility] Urobilinogen Auto test strip Ql (U)Ordered By: Jarad Torres on 04-22-2023 Urobilinogen Ql (U) Normal mg/dl Normal [facility] Basophil percentageOrdered B y: Chon Segovia on 04-20-2023 Basophil percentage 0-5 SEEN /hpf 0-5 [facility] Bilirubin Test strip Ql (U)O rdered By: Chon Segovia on 04-20-2023 Bilirubin Ql (U) 3 mg/dL Negative [facility] Comment on above: COLOR OF URINE MAY A FFECT DIPSTICK RESULTS. Culture, urineOrdered By: St norma Segovia on 04-20-2023 Bacteria identified Cx Nom (U) Culture exhibits no growth. [facility] Ketones Test strip Ql (U)Ord ered By: Chon Segovia on 04-20-2023 Ketones Ql (U) 5 mg/dl Negative [facility] Laboratory - Chemistry and C hemistry - challengeon 04-20-2023 Bilirubin Ql (U) Negative [facility] Glucose Ql (U) Negative [facility] Ketones Ql (U) Negative [facility] pH (U) 6.5 [pH] [facility] Specific gravity (U) [Rel density] 1.015 [facility] Urobilinogen (U) [Mass/Vol] Negative [facility] Laboratory - Hematology and Cell countson 04-20-2023 Hemoglobin Ql (U) Large [facility] Laboratory - Specimen inform ationon 04-20-2023 Clarity (U) Clear [facility] Color (U) ORANGE [facility] Laboratory - Urinalysison Nitrite Ql (U) Negative [facility] Protein Ql (U) Negative [facility] Mucus LM Ql (Urine sed)Order ed By: Chon Segovia on 04-20-2023 Mucus Ql (Urine sed) 0 SEEN /hpf [facility] Nitrite Test strip Ql (U)Ord ered By: Chon Segovia on 04-20-2023 Nitrite Ql (U) Positive Negative [facility] No Panel Informationon 04-20 Urine Leukocytes Negatve [facility] Urine Non-Hemolyzed Blood Non-Hemolyzed [facility] Protein Test strip Ql (U)Ord ered By: Chon Segovia on 04-20-2023 Protein Ql (U) 15 mg/dl Negative [facility] Squamous epithelial cells de tection in urine sediment by light microscopyOrdered By: Chon Segovia on 04-20-2023 Epithelial cells.squamous LM Ql (Urine sed) 0-5 SEEN /hpf 5-10 [facility] Urine blood detectionOrdered By: Chon Segovia on 04-20-2023 RBC Ql (U) 150 /ul Negative [facility] RBC Ql (U) 0 SEEN /hpf 0-5 [facility] Urine clarityOrdered By: Tra Segovia on 04-20-2023 Clarity (U) Sl. Cloudy Clear [facility] Urine color determinationOrd ered By: Chon Segovia on 04-20-2023 Color (U) Yellow Yellow [facility] Urine glucose detectionOrder ed By: Chon Segovia on 04-20-2023 Glucose Ql (U) Normal mg/dl Normal [facility] Urine leukocyte esterase det ection by dipstickOrdered By: Chon Segovia on 04-20-2023 Leukocyte esterase Test strip Ql (U) 25 /ul Negative [facility] Urine pHOrdered By: Chon monique on 04-20-2023 pH (U) 5.0 [pH] 5.0 - 8.0 [facility] Urine sediment bacteria coun t by microscopy (number/high power field)Ordered By: Chon Segovia on 04-20-2023 Bacteria LM.HPF (Urine sed) [#/Area] 0 /[HPF] None Seen [facility] Urine specific gravity measu rementOrdered By: Chon Segovia on 04-20-2023 Specific gravity (U) [Rel density] 1.025 1.002-1.03 0 [facility] Urobilinogen Auto test strip Ql (U)Ordered By: Chon Segovia on 04-20-2023 Urobilinogen Ql (U) 4 mg/dl Normal [facility] Culture, urineOrdered By: Hailey Dixon on 04-18-2023 Bacteria identified Cx Nom (U) Positive [facility] Bacteria identified Cx Nom (U) Positive [facility] Laboratory - Chemistry and C hemistry - challengeon 04-18-2023 Bilirubin Ql (U) Negative [facility] Glucose Ql (U) Negative [facility] Ketones Ql (U) Trace (5) [facility] pH (U) 6.0 [pH] [facility] Specific gravity (U) [Rel density] 1.005 [facility] Laboratory - Hematology and Cell countson 04-18-2023 Hemoglobin Ql (U) Hemolyzed [facility] Laboratory - Specimen inform ationon 04-18-2023 Clarity (U) Slightly Hazy [facility] Color (U) STRAW [facility] Laboratory - Urinalysison Nitrite Ql (U) Negative [facility] No Panel Informationon 04-18 Urine Leukocytes Negatve [facility] Urine Non-Hemolyzed Blood Small [facility] Desk Assistant Cytology Reporton 2021 Desk Assistant Cytology Report . Pathology Reports Accession: Collected Date/Time: Received Date/Time: Pathologist: [id number] 02/25/2022 13:58 EDT 02/25/2022 18:00 EDT Desk Assistant Cytology Report SPECIMEN: Specimen Description: Liquid Prep w/ HPV Specimen: Cervical Screening or Diagnostic: Screening RELEVANT HISTORY: LMP: 02-17-22 [id number] SPECIMEN ADEQUACY: SATISFACTORY FOR EVALUATION ENDOCERVICAL/TRANSFORMATION AL ZONE COMPONENT PRESENT INTERPRETATION/RESULTS: NEGATIVE FOR INTRAEPITHELIAL LESION OR MALIGNANCY HIGH RISK HPV TESTING: High Risk HPV Typing: Negative HPV Types 16, 18, 31, 33, 35, 39, 45, 51, 52, 56, 58, 59, 66 and 68 DNA were undetectable or below the pre-set threshold. The eda High-Risk HPV DNA Test is not intended for use as a screening device for Pap normal women under age 30 and is not intended to substitute for regular Pap screening. The eda High-Risk HPV DNA Test is designed to augment existing methods for the detection of cervical disease and should be used in conjunction with clinical information derived from other diagnostic and screening tests, physical examinations and full medical history in accordance with appropriate patient management procedures. NOTE: A negative result does not preclude the presence of HPV infection because results depend on adequate specimen collection, absence of inhibitors and sufficient DNA to be detected. COMMENT: This Pap Test was successfully processed and evaluated with the assistance of the [employer] ThinPrep Test Imaging System. Electronically Signed by Pathology report verified by [facility] Screened by: [place] Electronically signed by Heather DOLAN (ASCP) Sign-Out Date: 03/06/2022 12:46 Performing Lab: [facility], [address] [place] [id number] [facility] Disclaimer The Pap test is a screening test for cervical cancer. As evidenced by published data, it is subject to both inherent false negative and false positive results. Your patient's results should be interpreted in context with pertinent clinical history including gynecological examination. Normal [facility]) HPVon 03-05-2022 HPV Interp Normal See Interp HPVN [facility]) Comment on above: Order Comment: Order placed by AP_HPV_ORDER rule from [id number] Result Comment: High Risk HPV Typing: NEGATIVE HPV types 16, 18, 31, 33, 35, 39, 45, 51, 52, 56, 58, 59, 66 and 68 DNA were undetectable or below the pre-set threshold. The eda High-Risk HPV DNA Test is not intended for use as a screening device for Pap normal women under age 30 and is not intended to substitute for regular Pap screening. The eda High-Risk HPV DNA Test is designed to augment existing methods for the detection of cervical disease and should be used in conjunction with clinical information derived from other diagnostic and screening tests, physical examinations and full medical history in accordance with appropriate patient management procedures. NOTE: A negative result does not preclude the presence of HPV infection because results depend on adequate specimen collection, absence of inhibitors and sufficient DNA to be detected. See Interp HPVN Performed By: #### H PV #### [place] [address] HPV Source [facility] Comment on above: Order Comment: Order placed by AP_HPV_ORDER rule from [id number] Performed By: #### H PV #### [place] [address] Vital Signs Date Time Vital Sign Value Performing Clinician Carmella babb 04-22-2023 20:51-0400 Respiratory rate 18 /min No Primary Care Physician [facility] 04-22-2023 20:51-0400 SaO2% (BldA) [Mass fraction] 98 % No Primary Care Physician [facility] 04-22-2023 20:45-0400 Diastolic blood pressure 89 mm[Hg] No Primary Care Physician [facility] 04-22-2023 20:45-0400 Heart rate 83 /min No Primary Care Physician [facility] 04-22-2023 20:45-0400 Systolic blood pressure 129 mm[Hg] No Primary Care Physician [facility] 04-22-2023 18:12-0400 Body height 162.56 cm No Primary Care Physician [facility] 04-22-2023 18:12-0400 Body mass index (BMI) [Ratio] 25.7 kg/m2 No Primary Care Physician [facility] 04-22-2023 18:12-0400 Body temperature 98 [degF] No Primary Care Physician [facility] 04-22-2023 18:12-0400 Body weight 68 kg No Primary Care Physician [facility] 04-20-2023 10:20-0400 Body temperature 98.9 [degF] No Primary Care Physician [facility] 04-20-2023 10:20-0400 Diastolic blood pressure 95 mm[Hg] No Primary Care Physician [facility] 04-20-2023 10:20-0400 Heart rate 110 /min No Primary Care Physician [facility] 04-20-2023 10:20-0400 SaO2% (BldA) [Mass fraction] 98 % No Primary Care Physician [facility] 04-20-2023 10:20-0400 Systolic blood pressure 132 mm[Hg] No Primary Care Physician [facility] 04-18-2023 09:05-0400 Body temperature 99.2 [degF] No Primary Care Physician [facility] 04-18-2023 09:05-0400 Body weight 68.03 kg No Primary Care Physician [facility] 04-18-2023 09:05-0400 Diastolic blood pressure 82 mm[Hg] No Primary Care Physician [facility] 04-18-2023 09:05-0400 Heart rate 83 /min No Primary Care Physician [facility] 04-18-2023 09:05-0400 Respiratory rate 16 /min No Primary Care Physician [facility] 04-18-2023 09:05-0400 SaO2% (BldA) [Mass fraction] 97 % No Primary Care Physician [facility] 04-18-2023 09:05-0400 Systolic blood pressure 115 mm[Hg] No Primary Care Physician [facility] Encounters Encounter Date Encounter Type Care Provider Facility Start: 05-09-2025 ambulatory Priya Blandon Facility :[facility] Start: 03-08-2025 End: 03-08-2025 ambulatory Randee Stapleton NP-C -Laboratory Start: 03-08-2025 End: 03-08-2025 Patient encounter procedure Randee K Michener ADVERTISING SALES REPRESENTATIVE-C -Laboratory Work Phone: Start: 03-08-2025 End: 03-08-2025 ambulatory Randee Melvin Pieter ADVERTISING SALES REPRESENTATIVE Facility:[facility] Start: 02-06-2025 End: 02-06-2025 ambulatory Randee Stapleton ADVERTISING SALES REPRESENTATIVE-C -Laboratory Start: 02-06-2025 End: 02-06-2025 Patient encounter procedure Randee Stapleton ADVERTISING SALES REPRESENTATIVE-C -Laboratory Work Phone: Start: 02-06-2025 End: 02-06-2025 ambulatory Randee Stapleton ADVERTISING SALES REPRESENTATIVE Facility:[facility] Start: 12-19-2024 Non-patient / Non-visit Dr. Supriya stahl MD -[facility] Work Phone: Start: 10-09-2024 End: 10-09-2024 ambulatory Randee Stapleton ADVERTISING SALES REPRESENTATIVE Facility:[facility] Start: 06-05-2024 End: 06-05-2024 ambulatory Randee Stapleton ADVERTISING SALES REPRESENTATIVE Facility:[facility] Start: 10-07-2023 End: 10-07-2023 ambulatory [facility] Work Phone: Start: 10-07-2023 End: 10-07-2023 Patient encounter procedure [facility]-Laboratory, Sheba Rowell Start: 09-30-2023 End: 10-01-2023 ambulatory [facility] Start: 09-30-2023 End: 09-30-2023 Subsequent hospital visit by physician [address] Comment on above: Hyperlipidemia, unsp ecified Start: 07-23-2023 End: 07-24-2023 ambulatory RAVEN TAMEZ Facility:[facility] Start: 07-13-2023 End: 07-13-2023 ambulatory RAVEN TAMEZ Facility:[facility] Start: 07-07-2023 End: 07-07-2023 ambulatory RAVEN TAMEZ Facility:[facility] Start: 06-17-2023 End: 06-17-2023 ambulatory No Primary Care Physician [facility] Work Phone: Start: 06-17-2023 End: 06-17-2023 Discharged Recurring No Primary Care Physician [facility]-Physical Therapy Work Phone: Start: 06-01-2023 End: 06-01-2023 ambulatory No Primary Care Physician [facility] Work Phone: Start: 06-01-2023 End: 06-01-2023 Patient encounter procedure No Primary Care Physician [facility]-Ultrasound, [facility] Work Phone: Start: 05-21-2023 End: 05-21-2023 Patient encounter procedure No Primary Care Physician [facility]-Laboratory, [facility] Start: 04-22-2023 End: 04-22-2023 Emergency department patient visit No Primary Care Physician [facility]-Emergency Department Work Phone: Start: 04-20-2023 End: 04-20-2023 ambulatory No Primary Care Physician [facility] Work Phone: Start: 04-20-2023 End: 04-20-2023 Patient encounter procedure No Primary Care Physician [facility] Work Phone: Start: 04-18-2023 End: 04-18-2023 ambulatory No Primary Care Physician [facility] Work Phone: Start: 04-18-2023 End: 04-18-2023 Patient encounter procedure No Primary Care Physician [facility]-Laboratory, Specimen Work Phone: Start: 04-18-2023 End: 04-18-2023 Patient encounter procedure No [facility] Work Phone: Start: 04-01-2023 End: 04-01-2023 ambulatory [facility] Work Phone: Start: 04-01-2023 End: 04-01-2023 Patient encounter procedure [facility]-Outpatient Breast Imaging Work Phone: Start: 02-25-2022 End: 03-02-2022 ambulatory PRIYA BLANDON APRN-[facility] Facility:B Start: 02-25-2022 End: 03-02-2022 Encounter for gynecological examination (general) (routine) without abnormal findings PRIYA BLANDON BERNARDINO Facility:B Start: 02-25-2022 End: 03-01-2022 Outreach Lab PRIYA BLANDON BERNARDINO [facility] Procedures Date Procedure Procedure Detail Performing Clinician Start: 02-06-2025 Serum progesterone measurement Randee VARNER Comment on above: Follicular phase 0.1 - 0.9 Luteal phase 1.8 - 23.9 Ovulation phase 0.1 - 12.0 First trimester 11.0 - 44.3 Second trimester 25.4 - 83.3 Third trimester 58.7 - 214.0 Postmenopausal 0.0 - 0.1Performed at: [facility] [place] [id number] Director: Lucian Acevedo PhD, Phone: [phone] Start: 09-30-2023 CT CARDIAC SCORING W O IV CONTRAST ALEX ORTLIP Start: 09-30-2023 Ct heart no contrast quant eval coronry calcium Alex G Ortlip PYROMETER MECHANIC-[facility] Work Phone: Start: 06-01-2023 US scan of thyroid No P rimary Care Physician Start: 04-22-2023 CT of abdomen and pe lvis without contrast No Primary Care Physician Start: 04-22-2023 Urine culture No Primar y Care Physician Start: 04-20-2023 Urine culture No Primar y Care Physician Start: 04-18-2023 Urine culture No Primar y Care Physician Start: 04-01-2023 Screening mammography N o Primary Care Physician Plan of Treatment Date Care Activity Detail Author Start: 2033 RSV patient s and/or patients aged 60+ years (1 - 1-dose 60+ series) RSV patients and/or patients aged 60+ years (1 - 1-dose 60+ series) [facility] Start: 02-20-2024 Influenza vaccination Influenz a Vaccine (Season Ended) [facility] Start: 11-02-2023 Zoster Vaccines (1 of 2) Zoste r Vaccines (1 of 2) [facility] Start: 04-22-2023 End: 04-22-2023 [facility] Start: 04-22-2023 [facility] Start: 04-22-2023 Bacteria identified in Urine by Culture Urine Culture [facility] Start: 04-20-2023 Bacteria identified in Urine by Culture [facility] Start: 04-20-2023 [facility] Start: 04-01-2023 MG Breast - bilatera l Screening [facility] Start: 04-01-2023 Screening mammography SCRN NESTOR M (CAD)W/ROSS BILAT [facility] Start: 02-19-2023 COVID-19 Vaccine ( season) COVID-19 Vaccine () [facility] Start: 2013 Screening for malign ant neoplasm of breast Mammogram [facility] Start: 11-02-1995 DTaP/Tdap/Td Vaccine s (1 - Tdap) DTaP/Tdap/Td Vaccines (1 - Tdap) [facility] Start: 1994 Screening for malign ant neoplasm of cervix [facility] Start: 1992 Hepatitis B Vaccines (1 of 3 - 19+ 3-dose series) Hepatitis B Vaccines (1 of 3 - 19+ 3-dose series) [facility] Start: 11-02-1991 Hepatitis C screening Hepatitis C [facility] Start: 1974 MMR Vaccines (1 of 1 - Standard series) MMR Vaccines (1 of 1 - Standard series) [facility] Start: 1973 HIV screening HIV Screening [facility] Start: 1973 Lipid panel Lipid Panel [facility] Start: 1973 Screening for malign ant neoplasm of colon [facility] Start: 1973 Yearly Adult Physical Yearly Adult P hysical [facility] End: 09-30-2023 CT for calcium scoring WO contrast and CTA W contrast IV Heart and coronary arteries [facility] Service Area Work Phone: Comment on above: Once for 1 Occurrenc es starting 09/30/2023 until 09/30/2023 Patient Education Overactive Mike dder Syndrome (OAB) [facility] Work Phone: Patient referral [facility] Work Phone: Serum testosterone measurement [facility] Testosterone Free [Mass/volume] in Serum or Plasma [facility] Testosterone measurement [facility] Payers Date Payer Category Payer Self-pay [id number] 2024 Self-pay [id number] 2023 Unknown [employer] [id number] 2023-Present [address] [place] [address] [id number] 2023 Unknown [id number] 2022 Unknown [id number] 1975 Unknown [id number] 1975 Unknown [id number] Unknown [id number] Unknown [id number] Unknown [id number] Unknown [id number] Unknown [id number] Unknown [id number] Social History Date Type Detail Facility Start: 02-25-2022 End: 04-22-2023 Tobacco smoking status Never smoked tobacco (finding) [facility] Sex Assigned At Sex [facility] Start: 1975 Sex Assigned At Female [facility] Start: 04-20-2023 End: 04-22-2023 Tobacco smoking status NHIS Unknown if ever smoked [facility] Start: 1975 Sex assigned at Not on file [facility] Work Phone: Gender identity Not on file [facility] Start: 09-20-2023 End: 09-30-2023 Exposure to SARS-CoV-2 (event) Not sure [facility] Clinical Notes 02-25-2022 to 07-23-2023 Note Date & Type Note Facility 07-23-2023 Note HNO ID: [id number] Author: RAVEN TAMEZ MD Service: ? Author Type: Physician Type: Progress Notes Filed: 07/24/2023 14:38 Note Text: Salomon Tejeda 1975 REFERRING PHYSICIAN: No ref. 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 PAST MEDICAL HISTORY Diagnosis Date Constipation SAHIL (generalized anxiety disorder) Patrice's thyroiditis Iron deficiency anemia, unspecified OAB (overactive bladder) OCD (obsessive compulsive disorder) Polydipsia Thyroid nodule Thyroid nodule 06/01/2023 Undiagnosed cardiac murmurs PAST SURGICAL HISTORY Procedure Laterality Date COLONOSCOPY FLX DX W/COLLJ SPEC WHEN PFRMD 12/20/2012 EGD TRANSORAL BIOPSY SINGLE/MULTIPLE 12/20/2012 h.pylori + EXTRACTION, ERUPTED TOOTH OR EXPOSED ROOT (ELEVATION AND/OR FORCEPS REMOVAL) THYROID FINE NEEDLE ASPIRATION Left 07/13/2023 Current Outpatient Medications Medication Sig magnesium oxide,aspartate,citr (TRIPLE MAGNESIUM COMPLEX) 400 mg magnesium cap Take by mouth. OTC PRODUCT Take 1 capsule by mouth once daily. Cranberry and D-mannose combined Norethin-Eth Estrad Triphasic (NYLIA , 28,) 0.5/0.75/1 mg- 35 mcg per tablet Take 1 tablet by mouth once daily. amitriptyline (ELAVIL) 10 mg tablet Take 25 mg by mouth daily at bedtime. L. acidophilus/Bifido. longum (LACTOBACILLUS ACIDOPH AND BIFID ORAL) Take 1 capsule by mouth once daily. vibegron (GEMTESA) 75 mg tablet Take 75 mg by mouth once daily. loratadine (CLARITIN) 10 mg tablet Take 1 tablet by mouth once daily as needed. FOR ALLERGY SYMPTOMS polyethylene glycol 3350 (MIRALAX ORAL) Take 17 g by mouth once daily. (Patient not taking: Reported on 07/23/2023) ASHWAGANDHA EXTRACT ORAL Take 500 mg by mouth once daily. (Patient not taking: Reported on 07/07/2023) Ferrous Sulfate 325 mg (65 mg iron) tablet Take 1 tablet by mouth twice daily. (Patient not taking: Reported on 07/23/2023) Norethindrone-Eth Estradiol (ORTHO-NOVUM , ,) 1-35 mg-mcg per tablet Take 1 tablet by mouth once daily. (Patient not taking: Reported on 07/23/2023) No current facility-administered medications for this visit. ALLERGIES: Amoxicillin, Ciprofloxacin, Penicillins, and Seasonal Allergies REVIEW OF SYSTEMS: Denies pain in the area PHYSICAL EXAMINATION: General: The patient is 47 year old female, well nourished, well hydrated in no acute distress. The patient is oriented to time, place, and person. VITALS: Blood pressure 122/78, pulse 94, temperature 37 ?C (98.6 ?F), height 162.6 cm (5' 4), weight 65.9 kg (145 lb 3.2 oz), last menstrual period 07/06/2023, SpO2 97%. Body mass index is 24.92 kg/m?. Neck supple with no masses Assessment IMPRESSION: lymphocytic thyroiditis PLAN: I have discussed above with the patient. She may develop hypothyroidism with this thyroiditis. She will return to her PCP for follow up. Patient acknowledges above. Diagnoses: (E06.3) Lymphocytic thyroiditis (primary encounter diagnosis) I have confirmed and edited as necessary, the PFSH and ROS obtained by others. Medical Decision Making: Problems: Low: Acute, uncomplicated illness or injury Medical Decision Making Level: 2 - Straightforward Raven Tamez MD 07/15/2022 left thyroid FNA [facility] 07-13-2023 Note HNO ID: [id number] Author: LEELA COBIAN RN Service: ? Author Type: Registered Nurse Type: Progress Notes Filed: 07/13/2023 11:46 Note Text: UNIVERSAL PROTOCOL / SAFETY CHECKLIST Procedure to be Performed: US guided FNA of left thyroid nodule Sign In: A Moment of CARE was completed. Personnel directly involved with the procedure wore the appropriate PPE (Personal Protective Equipment). No special equipment needed. Patient/Surrogate Stated/Verified: PATIENT VERIFIED(optional for EMERGENT procedures): Patient name, Date of , Relevant allergies, and The intended procedure Time Out Communication: Intended patient and procedure match the source documents. Consent documented and matches the intended procedure. Relevant labs, photos, and/or imaging studies have been reviewed. Correct side/site marked and visible. Medications required for procedure verified. No fire risk assessment and interventions applicable. No implant(s) inserted. Sign Out: SIGN OUT (optional for EMERGENT procedures): All specimen containers correctly labeled. All instruments, equipment, possible retained foreign bodies accounted for. Post-procedure follow-up management communicated and Plan of Care Visit completed when applicable. Leela Cobian RN [facility] 07-13-2023 Note HNO ID: [id number] Author: RAVEN TAMEZ MD Service: ? Author Type: Physician Type: Progress Notes Filed: 07/13/2023 16:45 Note Text: Salomon presents for US guided FNA of left thyroid nodule PROCEDURE NOTE: After informed consent was given and patient gives permission for the procedure, the patient was in the supine position with neck in slight extension. Appropriate time out protocol was followed. The ultrasound machine was used for real time imaging. The anterior neck skin was cleansed with a sterile surgical skin preparation. The skin and subcutaneous tissues were infiltrated with 1% xylocaine with epinephrine. The ultrasound transducer probe was brought up to localize the thyroid nodules. The left thyroid nodule was identified with the US transducer. It was located in the mid to upper pole. It was about 1.8 cm in maximum dimension A 22 G needle was inserted into the nodule under US guidance. Several passes were made to ensure obtaining enough material. The needle was withdrawn. Smear slides were made and also the specimen was placed in a formalin solution and forwarded to pathology. The above was repeated with a new 22 G needle attached to a 10 cc syringe. This was done to ensure adequate sampling. This process was again repeated until adequate sampling was deemed to be achieved. The specimens were then forwarded to pathology. Hemostasis was achieved by pressure. A small bandaid was applied to both locations and patient told that she could remove it tomorrow. No evidence of bleeding noted. Patient tolerated procedure well. Complications - none EBL - minimal PLAN: Wound care instructions given by clinic staff. Patient to follow up via televisit for discussion of results. Patient acknowledges the above. Patient to follow up with telehealth visit next week. Patient acknowledges the above. [facility] 07-07-2023 Note HNO ID: [id number] Author: RAVEN TAMEZ MD Service: ? Author Type: Physician Type: Progress Notes Filed: 07/08/2023 13:15 Note Text: Salomon Tejeda 1975 REFERRING PHYSICIAN: No ref. provider found CHIEF COMPLAINT: Consult HPI: The patient is a 47 year old female presents with abnormal ultrasound of thyroid gland She is presently undergoing workup for abnormal thyroid hormone tests (no records available of this) She underwent US imaging and was found to have multinodular goiter with recommendations by radiologist for FNA of an abnormal left thyroid nodule. [facility] 06/01/2023 - US thyroid - 1.8 left thyroid nodule - FNA rec'd She denies globus symptoms. She denies hoarseness. She denies swallowing difficulties. She denies exposure to unusual radiation. She denies history of thyroiditis. She denies taking any thyroid hormones. She notes no family history of thyroid cancer. PAST MEDICAL HISTORY Diagnosis Date Constipation SAHIL (generalized anxiety disorder) Patrice's thyroiditis Iron deficiency anemia, unspecified OAB (overactive bladder) OCD (obsessive compulsive disorder) Polydipsia Thyroid nodule Thyroid nodule 06/01/2023 Undiagnosed cardiac murmurs PAST SURGICAL HISTORY Procedure Laterality Date COLONOSCOPY FLX DX W/COLLJ SPEC WHEN PFRMD 12/20/2012 EGD TRANSORAL BIOPSY SINGLE/MULTIPLE 12/20/2012 h.pylori + EXTRACTION, ERUPTED TOOTH OR EXPOSED ROOT (ELEVATION AND/OR FORCEPS REMOVAL) Current Outpatient Medications Medication Sig OTC PRODUCT Take 1 capsule by mouth once daily. Cranberry and D-mannose combined Norethin-Eth Estrad Triphasic (NYLIA , 28,) 0.5/0.75/1 mg- 35 mcg per tablet Take 1 tablet by mouth once daily. amitriptyline (ELAVIL) 10 mg tablet Take 10 mg by mouth daily at bedtime. L. acidophilus/Bifido. longum (LACTOBACILLUS ACIDOPH AND BIFID ORAL) Take 1 capsule by mouth once daily. vibegron (GEMTESA) 75 mg tablet Take 75 mg by mouth once daily. polyethylene glycol 3350 (MIRALAX ORAL) Take 17 g by mouth once daily. ASHWAGANDHA EXTRACT ORAL Take 500 mg by mouth once daily. (Patient not taking: Reported on 07/07/2023) Ferrous Sulfate 325 mg (65 mg iron) tablet Take 1 tablet by mouth twice daily. loratadine (CLARITIN) 10 mg tablet Take 1 tablet by mouth once daily as needed. FOR ALLERGY SYMPTOMS Norethindrone-Eth Estradiol (ORTHO-NOVUM ,) 1-35 mg-mcg per tablet Take 1 tablet by mouth once daily. No current facility-administered medications for this visit. ALLERGIES: Amoxicillin, Ciprofloxacin, Penicillins, and Seasonal Allergies PERSONAL HISTORY: Social History Tobacco Use Smoking status: Never Smokeless tobacco: Never Vaping Use Vaping Use: Never used Substance Use Topics Alcohol use: Not Currently Comment: occasional Drug use: Never FAMILY HISTORY Problem Relation Age of Onset Hypertension Mother other (HLD) Mother Alcohol/Drug Father Hypertension Father No Known Problems Brother No Known Problems Maternal Grandmother Vasculitis Maternal Grandfather No Known Problems Paternal Grandmother No Known Problems Paternal Grandfather No Known Problems Son The review of systems data was entered by the nurse and reviewed by az Nursing Notes: Ivania Galdamez LPN 07/07/2023 3:07 PM Signed REVIEW OF SYSTEMS: General: The patient denies fatigue, denies weight loss, denies weight gain, denies feeling hot, and denies feelings of cold. Eyes: The patient denies glaucoma, denies eye injury/surgery, wears contacts. Ear/Nose/Throat: The patient denies allergies, denies hayfever, denies ear infections, and denies bloody noses. Cardiovascular: The patient denies chest pain, denies heart disease, denies high blood pressure,denies cardiac stent, denies prior heart attack, denies irregular heart beat, denies high cholesterol, denies poor circulation, denies heart failure, other cardiac issues, denies claudication, denies cold feet, denies peripheral arterial stent. Respiratory: The patient denies tuberculosis, denies pneumonia, denies frequent cough, denies pulmonary embolism, denies shortness of breath, and denies coughing up blood. Gastrointestinal: The patient denies difficulty swallowing, denies acid reflux, denies ulcers, denies vomiting, denies jaundice/hepatitis, denies gallbladder problems, denies black or tarry stools, notes hemorrhoids, denies bleeding from rectum, denies diverticulitis, denies constipation, denies diarrhea, denies loss of stool control, and denies hernias. Kidney/Bladder: The patient denies kidney stones, notes urine indeniesfections, and bloody urine. Skin: The patient denies a history of skin cancer, denies bleeding/changing moles, and denies a history of skin rash. Neurologic: The patient denies a history of epilepsy/convulsions, denies headaches, denies head/spinal injuries, and denies stroke/TIA. Psychiatric: The patient denies psychiatri (more content not included)... [facility] 07-01-2023 Discharge summary Note Date/Time July 01, 2023 2:19pm [facility] Physical Therapy [facility] [address] [place] [address]. [address] [place] [address] / REHABILITATION SERVICES DISCHARGE SUMMARY MR#: [id number] Acct: [id number] Name: SALOMON TEJEDA Rep #: [id number] : 1975 47 From: Celeste Lancaster PT, Cert. MDT Referring DrIsabela: Status: REG R Insurance: [facility] P[employer]AN Patient Information Patient Information: SALOMON TEJEDA was seen in my office for initial evaluation on 06/17/23. The following Plan of Care was established for this patient: POC Established Initial Frequency: 1x/Week Initial Duration: 2-4 Months Anticipated Interventions Patient/Client Instruction: Educate patient on: Condition, Plan of Care and Risk Factors For the Purpose of:: To improve self management Therapeutic Exercise to Include: Strength training, Endurance training, Coordination, Body mechanics, Flexibilty training, Neuromotor development and Relaxation training For the Purpose of:: To increase ROM, To improve muscle performance and motor function and To improve ability of physical actions for home/community/work/leisure Last Seen Last Seen: This patient was last seen in our office . Pertinent comments regarding their Physical therapy will appear below: I received a note stating patient cancelled all appointments due to high insurance deductible/co-pay after initial evaluation. At this point I will be discontinuing this patient from physical therapy. I would be happy to see this patient again in the future if found appropriate by the physician. Thank you! Celeste Lancaster PT, Cert MDT <Electronically signed by Celeste Lancaster PT Cert. MDT> 07/01/23 1419 CC: Dr. Avril Santos MD; JOE ANTONY ~ JANICE Signed [facility] Work Phone: 1(140) 761-872809-07-2022 Evaluation + Plan note Future Scheduled Tests Laboratory* Pathology Desk Assistant Request 02/25/22 Radiology* MA Mammo Screening Bilateral w/ Ross 02/25/22 [facility] Evaluation noteNo assessment information available [facility] Work Phone: Evaluation note* Diagnosis Onset Date Resolution Status Urinary frequency acute Dysuria acute Urinary tract infection with hematuria acute [facility] Work Phone: Evaluation note* Diagnosis Hyperlipidemia, unspecified documented in this encounter [facility] Work Phone: Evaluation note* Diagnosis Hyperlipidemia, unspecified documented in this encounter [facility] Work Phone: Hospital course Narrative No data available for this section [facility] Hospital Discharge instructions No data available for this section [facility] Progress note No data available for this section [facility] Reason for referral (narrative)No [facility] for referral [facility] Work [facility] Summary Purpose Family History No Family History Records FoundNo Family History Records FoundNo Family History Records FoundNo Family History Records Found Advance Directives No Advanced Directives Records Found Advance Directive Response Recorded Date/ Time Living Will No April 22 6:28pm Power of Classroom Instructional Aide No April 22, 2023 6:28pm Advance Directive Response Recorded Date/ Time Living Will No April 22 5:28pm Power of Classroom Instructional Aide No April 22, 2023 5:28pm Chief Complaint and Reason for Visit Chief Complaint SCREENING Chief Complaint SCREENING CONCERN FOR UTI Urinary tract infection Reason for Visit Urinary frequency Dysuria Urinary tract infection with hematuria Chief Complaint SCREENING CONCERN FOR UTI Urinary tract infection UTI Reason for Visit Urinary frequency Dysuria Urinary tract infection with hematuria Chief Complaint SCREENING CONCERN FOR UTI Urinary tract infection UTI THYROMEGALY UI/RX HERE Reason for Visit Urinary frequency Dysuria Urinary tract infection with hematuria Chief Complaint UI/RX HERE Chief Complaint SCREENING CONCERN FOR UTI Urinary tract infection UTI THYROMEGALY Reason for Visit Urinary frequency Dysuria Urinary tract infection with hematuria Reason for Referral Specialty Diagnoses / Procedures Referred By Contac t Referred To Contact Radiology Diagnoses Hyperlipidemia, unspecified Procedures CT cardiac scoring wo IV contrast Alex Henriquez, PYROMETER MECHANIC-WAGE HAND [address] [place] [place] [address] Referral ID Status Reason Start Date Expiration Date Visits Requested Visits Authorized [id number] Authorized Perform Procedure 09/17/2023 09/16/2024 1 1 Additional Source Comments Care Team (unrecognized sect ion and content) Care Team Related Persons Name: ELIANA TEJEDA INFORMATION SOURCE (unrecogn ized section and content) DATE CREATED AUTHOR 03/20/2022 [facility] ([place]) DATE CREATED AUTHOR AUTHOR'S ORGANIZ ATION 07/28/2023 [facility] DATE CREATED AUTHOR AUTHOR'S ORGANIZ ATION 10/05/2023 [facility] DATE CREATED AUTHOR AUTHOR'S ORGANIZ ATION 04/24/2025 [facility] Care Teams (unrecognized sec tion and content) Team Status: Active Member Role Status Dates No Primary Care Physician Family Provider Active No Primary Care Physician Primary Care Provider Active Team Status: Inactive Member Role Status Dates No Primary Care Physician Primary Care Provider Active TELLY Shane Attending Provider, Referring Pr vesna Active Team Status: Inactive Member Role Status Dates No Primary Care Physician Primary Care Provider, Refer ring Provider Active Avril Dixon ADVERTISING SALES REPRESENTATIVE, ADVERTISING SALES REPRESENTATIVE-C Attending Provider Active Team Status: Inactive Member Role Status Dates No Primary Care Physician Primary Care Provider, Refer ring Provider Active Chon HILARIO PA Attending Provider Active Team Status: Inactive Member Role Status Dates No Primary Care Physician Primary Care Provider Active Avril Dixon ADVERTISING SALES REPRESENTATIVE, ADVERTISING SALES REPRESENTATIVE-C Attending Provider Active Team Status: Active Member Role Status Dates No Primary Care Physician Primary Care Provider Active Chon HILARIO PA Attending Provider Active Team Status: Inactive Member Role Status Dates No Primary Care Physician Primary Care Provider Active Chon HILARIO PA Attending Provider Active Team Status: Inactive Member Role Status Dates No Primary Care Physician Primary Care Provider Active Dr. Jarad Torres DO Emergency Provider Active Team Status: Active Member Role Status Dates No Primary Care Physician Family Provider Active Dr. Avril Santos MD Primary Care Provider Active Team Status: Inactive Member Role Status Dates No Primary Care Physician Primary Care Provider Active Dr. Jarad Torres DO Attending Provider, Emergency Provider Active Team Status: Inactive Member Role Status Dates Dr. Avril Santos MD Primary Care Provider, Attend ing Provider Active Team Status: Inactive Member Role Status Dates Dr. Avril Santos MD Primary Care Pr ovider, Attending Provider, Referring Provider Active Team Status: Inactive Member Role Status Dates Dr. Avril Santos MD Primary Care Provider Active ARPAN DIAZ Attending Provider, Referring Provide r Active Clothing Cutter Relationship Specialty Start Date End Date OrtlAlex, PYROMETER MECHANIC-[employer]AGE HAND [address] [place] [address] PCP - General 09/30/23 Clothing Cutter Relationship Specialty Start Date End Date OrcieloLuis Eduardolivia Valadez, PYROMETER MECHANIC[employer]WAGE HAND [address] [place] [address] PCP - General 09/30/23 Team Status: Active Member Role/Relationship Status Dates Randee Stapleton ADVERTISING SALES REPRESENTATIVE, ADVERTISING SALES REPRESENTATIVE-C Primary Care Provider Activ e Team Status: Inactive Member Role/Relationship Status Dates Randee Stapleton ADVERTISING SALES REPRESENTATIVE, ADVERTISING SALES REPRESENTATIVE-C Primary Care Provider Activ e Start: December 19, 2024 Dr. Supriya Jaffe MD Attending Provider Active Start: December 19, 2024 Team Status: Inactive Member Role/Relationship Status Dates Randee Stapleton ADVERTISING SALES REPRESENTATIVE, ADVERTISING SALES REPRESENTATIVE-C Primary Care Provider Activ e Start: February 06, 2025 End: February 06, 2025 Randee Stapleton NP, ADVERTISING SALES REPRESENTATIVE-C Attending Provider Active Start: February 06, 2025 End: February 06, 2025 Randee Stapleton ADVERTISING SALES REPRESENTATIVE, ADVERTISING SALES REPRESENTATIVE-C Referring Provider Active Start: February 06, 2025 End: February 06, 2025 Team Status: Active Member Role/Relationship Status Dates Randee Stapleton ADVERTISING SALES REPRESENTATIVE, ADVERTISING SALES REPRESENTATIVE-C Primary care physician Acti ve Team Status: Inactive Member Role/Relationship Status Dates Randee Stapleton ADVERTISING SALES REPRESENTATIVE, ADVERTISING SALES REPRESENTATIVE-C Primary care physician Acti ve Start: December 19, 2024 Dr. Supriya Jaffe MD Attending physician Active Start: December 19, 2024 Team Status: Inactive Member Role/Relationship Status Dates Randee Stapleton ADVERTISING SALES REPRESENTATIVE, ADVERTISING SALES REPRESENTATIVE-C Primary care physician Acti ve Start: February 06, 2025 End: February 06, 2025 Randee Stapleton ADVERTISING SALES REPRESENTATIVE, ADVERTISING SALES REPRESENTATIVE-C Attending physician Active Start: February 06, 2025 End: February 06, 2025 Randee Stapleton ADVERTISING SALES REPRESENTATIVE, ADVERTISING SALES REPRESENTATIVE-C Referring Provider Active Start: February 06, 2025 End: February 06, 2025 Team Status: Inactive Member Role/Relationship Status Dates Randee Stapleton ADVERTISING SALES REPRESENTATIVE, ADVERTISING SALES REPRESENTATIVE-C Primary care physician Acti ve Start: March 08, 2025 End: March 08, 2025 Randee Stapleton ADVERTISING SALES REPRESENTATIVE, ADVERTISING SALES REPRESENTATIVE-C Attending physician Active Start: March 08, 2025 End: March 08, 2025 Randee Stapleton ADVERTISING SALES REPRESENTATIVE, ADVERTISING SALES REPRESENTATIVE-C Referring Provider Active Start: March 08, 2025 End: March 08, 2025 Goals (unrecognized section and content) Goals may be documented in a n alternate section Reason for Visit (unrecogniz ed section and content) Specialty Diagnoses / Procedures Referred By Ba t Referred To Contact Radiology Diagnoses Hyperlipidemia, unspecified Procedures CT cardiac scoring wo IV contrast Alex Henriquez, PYROMETER MECHANIC[employer] HAND [address] [place] [address] Referral ID Status Reason Start Date Expiration Date Visits Requested Visits Authorized [id number] Authorized Perform Procedure 09/17/2023 09/16/2024 1 1 FOR RECORDS PERTAINING TO PATIENTS WHO ARE OR HAVE BEEN ENROLLED IN A CHEMICAL DEPENDENCY/SUBSTANCEABUSE PROGRAM, SOME INFORMATION MAY BE OMITTED. This clinical summary was aggregated from multiple sources. Caution should be exercised in using it in the provision of clinical care. This summary normalizes information from multiple sources, and as a consequence, information in this document may materially change the coding, format and clinical context of patient data. In addition, data may be omitted in some cases. CLINICAL DECISIONS SHOULD BE BASED ON THE PRIMARY CLINICAL RECORDS. [facility] Field Agent [facility]. provides no warranty or guarantee of the accuracy or completeness of information in this document.
[2025-05-11 09:36] LABS: Hematocrit 44.5 % (37-47); Hemoglobin 13.9 g/dL (12.0-15.0); Immature Granulocytes Count 0.010 X10^3/uL (0.0-0.0); Mean Corp Hgb Conc 31.2 g/dL (32-36); Mean Corpuscular Volume 97.2 fL (81-99); Mean Platelet Vol. 10.4 fl (6.2-12.0); NRBC Flagged by Analyzer 0 % (0-5); Platelet Count 236 K/mm3 (150-450); RBC Distribution Width CV 12.0 % (11.6-14.6); RBC Distribution Width SD 43.2 fl (35.1-43.9); Red Blood Count 4.58 M/mm3 (4.2-5.4); White Blood Count 4.5 K/mm3 (4.4-11.0)
[2025-05-11 10:38] LABS: AST(SGOT) 25 U/L (<=31); Alanine Aminotransfer ALT/SGPT 21 U/L (<=34); Albumin, Serum 4.3 g/dL (3.5-5.0); Alkaline Phosphatase 63 U/L (35-104); Anion Gap 10 (5-15); BUN 13 mg/dL (4-19); BUN/Creat Ratio 15.3 RATIO (10-20); Calcium,Total 9.1 mg/dL (7.6-11.0); Carbon Dioxide 25.9 mmol/L (21.0-32.0); Chloride 106 mmol/L (98-108); Cholesterol 203 mg/dL (<=200); Globulin 2.6 g/dL (2.2-4.2); Glucose 97 mg/dL (70-99); Low Density Lipoprotein Calc. 142 mg/dL; Potassium 4.2 mmol/L (3.3-5.1); Triglycerides 45 mg/dL; Very Low Density Lipoprotein 9 mg/dL (5-40); cholesterol:hdl ratio screen 3.84
== END | disposition home or self-care (01) ==
LOC: LAB 08:47
PROVIDERS: PCP Nurse Practitioner Family; Referring Provider Nurse Practitioner Family; Visit Provider Nurse Practitioner Family
DX: Z00.00 Encounter for general adult medical examination without abnormal findings (principal); Z13.6 Encounter for screening for cardiovascular disorders; Z13.1 Encounter for screening for diabetes mellitus
CPT/HCPCS: 36415; 80053; 80061; 83036; 85025